=== PATIENT | male | born 1950 | race Caucasian/White ===

== ENCOUNTER 2021-03-26 12:03 | Outpatient (CLI) | payer BC, SELFPAY ==
--- NOTE | ~2021-03-26 | XR_ITS ---
EXAMINATION: XR chest 2V EXAM DATE: 03/26/2021 12:57 INDICATION: Shortness of breath, STAT. TECHNIQUE: Frontal and lateral projections of the chest obtained and reviewed. There is no prior amberly dy for comparison. FINDINGS: Small amount of nonspecific posterior sulcal airspace disease probably in the right lower l obe but could be in both. This is best identified on the lateral projection. Atelectasis or pneumonia . Mid and upper lung zones are clear. Cardiomediastinal silhouette is normal. There are no osseous ab normalities identified. IMPRESSION: Posterior sulcal pneumonia or atelectasis. Reviewed, dictated and finalized at location B. ASSISTANT
[2021-03-26 12:32] LABS: Basophils Percent Auto 0.2 % (0.2-1.2); Hematocrit 42.1 % (42.0-52.0); Hemoglobin 14.8 g/dL (14.0-18.0); Immature Granulocyte Absolute 0.04 K/mm3 (0.00-0.031); Immature Granulocyte Percent A 0.7 % (0-0.5); Lymphocytes Absolute Auto 0.62 K/mm3 (0.9-3.2); Lymphocytes Percent Auto 11.1 % (18.3-44.2); Mean Corpuscular HGB Conc 35.2 g/dl (32-36); Mean Corpuscular Hemoglobin 32.5 pg (26-34); Mean Corpuscular Volume 92.3 fl (80-100); Mean Platelet Volume 9.6 fl (7.4-10.4); Monocytes Absolute Auto 0.8 K/mm3 (0.1-0.6); Monocytes Percent Auto 13.6 % (2.6-8.5); Neutrophils Absolute Auto 4.2 K/mm3 (1.3-6.7); Neutrophils Percent Auto 74.4 % (45.5-73.1); Platelet Count Result 272 k/mm3 (150-375); Red Blood Count 4.56 M/mm3 (4.6-6.20); Red Cell Distribution Width 13.2 % (11.5-14.5); White Blood Count 5.6 K/mm3 (4.5-10.0)
[2021-03-26 12:43] LABS: Alanine Aminotransferase 92 U/L (4-50); Albumin Level 3.9 g/dL (3.5-5.1); Alkaline Phosphatase 39 U/L (38-126); Anion Gap 8 mmol/L (8-16); Aspartate Amino Transferase 81 U/L (17-59); Bilirubin,Total 1.1 mg/dL (0.2-1.3); Blood Urea Nitrogen 31 mg/dL (9-20); Calcium 8.5 mg/dL (8.4-10.2); Carbon Dioxide 28 mmol/L (22-30); Chloride 95 mmol/L (98-107); Estimated Glomerular Filt Rate 59; Glucose 237 mg/dL (65-110); Sodium 131 mmol/L (137-145)
[2021-03-26 13:00] LABS: Influenza Control Positive
[2021-03-26 14:23] LABS: Add Urine Microscopic? YES; Appearance Urine Clear (Clear); Bilirubin Urine Negative (Negative); Blood Urine Negative (Negative); Color Urine Amber (Yellow); Glucose Urine UA Negative (Negative); Ketones Urine Negative (Negative); Leukocyte Esterase Ur Negative LEU/UL (Negative); Mucus Urine Few /lpf; Nitrate Urine Negative (Negative); Protein Urine 2+ mg/dL (Negative); Specific Grav Ur 1.026 (1.001-1.035); Squamous Epithelial Cell Urine Rare /hpf (Few); Urobilinogen Urine Negative mg/dL (<2.0)
== END 2021-03-26 12:04 | disposition home or self-care (01) ==
PROVIDERS: PCP Internal Medicine; Visit Provider Internal Medicine
DX: J02.9 Acute pharyngitis, unspecified (principal); M79.10 Myalgia, unspecified site; R05.9 Cough, unspecified; R06.02 Shortness of breath; R53.1 Weakness; R30.0 Dysuria; R53.83 Other fatigue
CPT/HCPCS: 71046; 80053; 81001; 85025; 87804

== ENCOUNTER 2021-03-28 18:13 | Inpatient (IN) | payer BC, SELFPAY ==
[2021-03-28] VITALS (13 sets, daily range): BP systolic 139–168; BP diastolic 50–71; PULSE 77–91; RESP 18–29; TEMP 36.3–36.6; O2SAT 88–98; BMI 24.2
--- NOTE | ~2021-03-28 | XR_ITS ---
EXAMINATION: XR chest 1V portable DATE: 03/28/2021 19:20 INDICATION: Shortness of breath. TECHNIQUE: A single frontal view of the chest was obtained on 2 radiographs. COMPARISON: Chest 2 views 03/26/2021 FINDINGS: There are patchy airspace opacities in the mid and lower lung zones. No pleural effusion or pneumothorax. The heart size is normal. IMPRESSION: 1. Patchy airspace opacities in the mid and lower lung zones, likely pneumonia. Reviewed, dictated and finalized at location E. GER SURGERY
--- NOTE | ~2021-03-28 | CT_ITS ---
EXAMINATION: CTA chest PE protocol DATE: 03/29/2021 17:55 INDICATION: Shortness of breath. TECHNIQUE: Computed tomography angiography (CTA) of the chest was performed with 100 mL Omnipaque-350 intravenous contrast timed to evaluate the pulmonary arteries. Coronal maximum intensity projection 3D-reconstructions were created by the technologist. Automated exposure control and iterative reconst ruction technique were employed. The dose-length product was 408.56 mGy-cm. COMPARISON: Chest single view 03/28/2021 FINDINGS: There is mild scarring at the lung apices. There is mild emphysema. There are patchy ground glass opacities involving all lobes. There is mild elevation of right hemidiaphragm. There are patchy airspace opacities in right lower lobe. No pleural effusion. There is left atrial enlargement of the heart. No pericardial effusion. There is no pulmonary embolus. Calcified left hilar lymph nodes are consistent with old granulomatous disease. There is mild thoracic spondylosis. There is mild chronic height loss of T8 vertebral body. IMPRESSION: 1. No pulmonary embolus. Sensitivity is moderately decreased in the lower lobes due to motion artifac t. 2. Multifocal lung disease, consistent with COVID-19 pneumonia. 3. Mild emphysema. Reviewed, dictated and finalized at location E. ESTIMATOR IMPRESSION: 1. No pulmonary embolus. Sensitivity is moderately decreased in the lower lobes due to motion artifact. 2. Multifocal lung disease, consistent with COVID-19 pneumonia. 3. Mild emphysema.
--- NOTE | 2021-03-28 18:22 | PC.NURSE ---
May contact Rupert Manning [phone] Lety Chavarria [phone]
--- NOTE | 2021-03-28 18:44 | ECG_ITS ---
Measurements Intervals [place] Rate: 84 P: NE: 0 QRS: 26 QRSD: 90 T: 19 QT: 395 QTc: 470 Interpretive Statements ATRIAL FLUTTER/TACHYCARDIA INCOMPLETE RIGHT BUNDLE BRANCH BLOCK BASELINE ARTIFACT- II, III, AVR, AVL, AVF, V3-V6 ABNORMAL ECG Electronically Signed On 03-28-2021 20:36:33 MERCHANDISE TEAM MANAGER by Jacobo Mariee D.O.
[2021-03-28 19:16] LABS: Basophils Percent Auto 0.1 % (0.2-1.2); Hematocrit 41.6 % (42.0-52.0); Hemoglobin 14.5 g/dL (14.0-18.0); Immature Granulocyte Absolute 0.07 K/mm3 (0.00-0.031); Immature Granulocyte Percent A 0.8 % (0-0.5); Lymphocytes Absolute Auto 0.67 K/mm3 (0.9-3.2); Lymphocytes Percent Auto 7.8 % (18.3-44.2); Mean Corpuscular HGB Conc 34.9 g/dl (32-36); Mean Corpuscular Hemoglobin 31.9 pg (26-34); Mean Corpuscular Volume 91.4 fl (80-100); Mean Platelet Volume 9.3 fl (7.4-10.4); Monocytes Absolute Auto 0.8 K/mm3 (0.1-0.6); Monocytes Percent Auto 9.5 % (2.6-8.5); Neutrophils Percent Auto 81.8 % (45.5-73.1); Platelet Count Result 337 k/mm3 (150-375); Red Blood Count 4.55 M/mm3 (4.6-6.20); Red Cell Distribution Width 13.1 % (11.5-14.5); White Blood Count 8.6 K/mm3 (4.5-10.0)
[2021-03-28 19:25] LABS: INR 1.3; Prothrombin Time 15.5 Seconds (11.1-14.7)
[2021-03-28 19:26] LABS: Partial Thromboplastin Time 29.9 SECONDS (22.3-36.8)
[2021-03-28 19:29] LABS: Alanine Aminotransferase 97 U/L (4-50); Albumin Level 3.7 g/dL (3.5-5.1); Alkaline Phosphatase 53 U/L (38-126); Anion Gap 9 mmol/L (8-16); Aspartate Amino Transferase 96 U/L (17-59); Blood Urea Nitrogen 24 mg/dL (9-20); Calcium 8.2 mg/dL (8.4-10.2); Carbon Dioxide 27 mmol/L (22-30); Chloride 95 mmol/L (98-107); Estimated CRCL calculation 68 ml/min; Estimated Glomerular Filt Rate > 60; Glucose 151 mg/dL (65-110); Potassium 3.9 mmol/L (3.4-5.0); Sodium 131 mmol/L (137-145)
[2021-03-28 19:38] LABS: NT Pro B Type Natriuretic Pept 622 pg/mL (5-100)
--- NOTE | 2021-03-28 19:43 | ED.SOB ---
HPI - SOB/Dyspnea General Chief Complaint: Shortness of Breath/Dyspnea Stated Complaint: weakness Time Seen by Provider: 03/28/21 18:36 History of Present Illness HPI Narrative: Patient is a 71-year-old male who presents ER with cough for the last 10 days. Associated shortness of breath worsening over the last week. Denies fevers or chills or sweats. Saw his PCP 2 days ago. He was placed on Levaquin for possible pneumonia. He is unvaccinated against Covid. He did have a home test that had a faint positive line but no test at a facility. No chest pain or chest pressure. No loss of taste or smell. Patient found to be hypoxic upon arrival to the ER. Satting in the 80s. No history of lung disease. No lower extremity swelling. No orthopnea. Related Data Home Medications Medication Instructions Recorded Confirmed aspirin 81 mg tablet,delayed 81 mg PO DAILY 04/26/20 03/27/21 release calcium carbonate 390 mg calcium 390 mg PO DAILY 10/16/20 03/27/21 (1,000 mg) tablet mecobalamin (vitamin B12) 1,000 1,000 mcg SUBLINGUAL DAILY 10/16/20 03/27/21 mcg disintegrating tablet,sublingual omega-3 fatty acids 1,000 mg 2,000 mg PO BID cap 10/16/20 03/27/21 capsule amlodipine-benazepril 1 cap PO DAILY 03/28/21 atorvastatin 40 mg PO DAILY 03/28/21 folic acid 1 mg PO DAILY 03/28/21 hydrochlorothiazide 12.5 mg PO DAILY 03/28/21 metformin 1,000 mg PO BID 03/28/21 Allergies Allergy/AdvReac Type Severity Reaction Status Date / Time No Known Allergies Allergy Verified 03/26/21 11:30 Review of Systems Review of Systems: All systems reviewed & are unremarkable except as noted in HPI and below Constitutional: Constitutional: Denies chills, Denies fever(s) and Reports weakness ENT: Denies nasal congestion and Denies sore throat Cardiovascular: Cardiovascular: Denies chest pain, Denies rapid heart rate and Denies radiating jaw, neck or arm pain Respiratory: Respiratory: Reports cough, Reports dyspnea and Denies wheezing Gastrointestinal: Gastrointestinal: Denies abdominal pain, Denies diarrhea, Denies nausea and Denies vomiting Neurologic: Denies headache(s), Denies focal weakness and Denies numbness PMFSH Past Medical History Medical History (Updated 03/28/21 @ 21:04 by Aldo Pedroza MD) Benign essential hypertension BMI 25.0-25.9,adult BMI 26.0-26.9,adult BMI 27.0-27.9,adult Colon cancer screening Diabetes type 2, controlled Elevated homocysteine Elevated LFTs Encounter for preventive health examination Encounter for routine adult health examination without abnormal findings Encounter for special screening examination for neoplasm of prostate Gout Grade II diastolic dysfunction Heart murmur Hematuria Hyperlipidemia Impacted cerumen of both ears Inguinal hernia Mitral valve prolapse Mitral valve regurgitation Muscle ache Muscle cramps Nummular eczema On window assembler drug therapy Pneumonia Sore throat Vitamin D deficiency Weakness Family History Family History (Reviewed 03/26/21 @ 11:39 by Amparo Sim [facility]) Mother Family history of thyroid disease Family history of coronary artery disease Sibling Family history of gout Family history of elevated blood lipids Cerebrovascular accident Father Family history of type 2 diabetes mellitus Other Family history of diabetes mellitus in first degree relative Social History Social History (Reviewed 03/26/21 @ 11:39 by Amparo Sim [facility]) Smoking status: Never smoker Alcohol intake: current Substance use: never Substance use type: does not use Exam Narrative: GENERAL: Well-appearing, well-nourished, and in no acute distress. HEAD: Normocephalic, atraumatic. EYES: PERRL and EOMI. CHEST: Clear to auscultation. No respiratory distress. HEART: Irregular regular rate and rhythm. Normal peripheral pulses. ABDOMEN: Soft, nontender, nondistended. EXTREMITIES: Normal range of motion. No edema. SKIN: Warm, dry, no rash.
[2021-03-28 20:09] LABS: SARS-CoV-2 RNA PCR Positive
--- NOTE | 2021-03-28 21:41 | ADMGEN ---
This patient, Larry Condon, was admitted to [facility] S[facility] Room 306-01. Patient/family oriented to hospital policies and general routines including ID bracelet, bed and alarms, visiting hours, pain management, procedures, bathroom and other care routines, personal items, smoking policy, room service/diet, and visiting hours. Information on how to activate the Rapid Response Team has been discussed. Patient/Family are encouraged to report perceived risks to care and to ask questions if they do not understand what they are told or what they should do.
--- NOTE | 2021-03-28 23:34 | PM.IMHP ---
H&P: HPI History of Present Illness Date/Time: 03/28/21 23:34 Chief Complaint: Weakness Narrative: 71-year-old male with past medical history of hypertension, hyperlipidemia, diabetes mellitus who presented to the ER with low oxygen saturations. The patient is a poor historian and cannot give me much in the form of details and thusly most of the information was obtained from ER records and office visit note. The patient had taken 3 home COVID test with 2 of the test for resulting in a faint positive result. He has not been vaccinated against COVID-19. The patient had been evaluated by Dr. Adarsh Major 03/26/2021 and a chest x-ray was performed which demonstrate pneumonia. He was placed on Levaquin. He denies any known ill exposures. He Rich tells me that he has just been feeling fatigued for about a week. According to the ER note the patient had also been having a cough. He denies any significant shortness of breath. However at home he was checking his pulse ox and his pulse ox over the last several days had been persistently around 88%. He denies any chest pain, pressure, lower extremity swelling, loss of sense of taste or smell. EKG performed in the ER demonstrated atrial fibrillation. The patient cannot confirm whether not he has atrial fibrillation. He states that Dr. Major ?would know something about that.? Is heart rate was controlled. He has not been having any palpitations. He is not on chronic blood thinners. Review of Systems Review of Systems: 12 systems were reviewed with pertinent positives and negatives per HPI. Except as documented in the HPI, all other systems were reviewed and are negative. [facility] Past Medical History Medical History (Updated 03/28/21 @ 23:38 by Vesta Roth DO) Benign essential hypertension Diabetes type 2, controlled Elevated homocysteine Gout Grade II diastolic dysfunction Heart murmur Hyperlipidemia Inguinal hernia Mitral valve regurgitation Nummular eczema On process inspector drug therapy Vitamin D deficiency Surgical History Surgical History (Updated 03/28/21 @ 23:38 by Vesta Roth DO) No pertinent past surgical history Family History Family History Mother Family history of thyroid disease Family history of coronary artery disease Sibling Family history of gout Family history of elevated blood lipids Cerebrovascular accident Father Family history of type 2 diabetes mellitus Family history of diabetes mellitus in first degree relative Social History Social History (Updated 03/28/21 @ 23:40 by Vesta Roth DO) Social History: The patient lives alone. He has a couple of daughters. 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 He is a lifelong nonsmoker. He drinks alcohol occasionally in moderation. He denies illicit substance use. Smoking status: Never smoker Alcohol intake: never Substance use: never Substance use type: does not use Spiritual care concerns: No Meds Home Medications and Allergies Home Medications Medication Instructions Recorded Confirmed Type aspirin 81 mg tablet,delayed 81 mg PO DAILY 04/26/20 03/28/21 History release allopurinol 300 mg tablet 150 mg PO DAILY #90 tablet 05/14/20 03/28/21 Rx mecobalamin (vitamin B12) 1,000 1,000 mcg SUBLINGUAL DAILY 10/16/20 03/28/21 History mcg disintegrating tablet,sublingual levofloxacin 500 mg tablet 500 mg PO DAILY 10 Days #10 tablet 03/26/21 03/28/21 Rx amlodipine-benazepril 1 cap PO DAILY 03/28/21 03/28/21 History atorvastatin 40 mg PO DAILY 03/28/21 03/28/21 History calcium carbonate-vitamin D3 [All 600 tablet PO DAILY 03/28/21 03/28/21 History Day Calcium] folic acid 1 mg PO DAILY 03/28/21 03/28/21 History hydrochlorothiazide 12.5 mg PO DAILY 03/28/21 03/28/21 History metformin 1,000 mg PO BID 03/28/21 03/28/21 History omega [id number] oil [Fish Oil] 1,200 cap PO BID 03/28/21 03/28/21 History
[2021-03-29] VITALS (9 sets, daily range): BP systolic 117–140; BP diastolic 56–71; PULSE 38–105; RESP 16–18; TEMP 35.8–36.9; O2SAT 90–94
[2021-03-29] MEDS: REMDESIVIR 200 MG/NS 250 ML 200 MG/250 ML BAG 250 MG IVPB (00:54)
[2021-03-29 05:45] LABS: Glucose Point of Care 275 mg/dl (65-105)
[2021-03-29 07:10] LABS: Alanine Aminotransferase 76 U/L (4-50); Estimated CRCL calculation 76 ml/min; Estimated Glomerular Filt Rate > 60
[2021-03-29 07:24] LABS: INR 1.3; Prothrombin Time 15.5 Seconds (11.1-14.7)
[2021-03-29 08:12] LABS: Glucose Point of Care 242 mg/dl (65-105)
[2021-03-29] MEDS: amLODIPine BESYLATE 5 MG TABLET 10 MG PO (08:17)
[2021-03-29] MEDS: OMEGA 3 POLYUNSAT FATTY ACIDS 1 GM CAP PO ×2 (08:17→18:06)
[2021-03-29] MEDS: ENOXAPARIN 40 MG/0.4 ML SYRINGE SUB-Q (08:17)
[2021-03-29] MEDS: hydroCHLOROthiazide 12.5 MG CAPSULE PO (08:17)
[2021-03-29] MEDS: metFORMIN HCL 500 MG TABLET 1000 MG PO ×2 (08:17→18:06)
[2021-03-29] MEDS: allopurinoL 150 MG TABLET PO (08:17)
[2021-03-29] MEDS: ASPIRIN 81 MG ENTERIC TABLET PO (08:17)
[2021-03-29] MEDS: lisinopriL 20 MG TABLET 40 MG PO (08:17)
[2021-03-29] MEDS: ATORVASTATIN 40 MG TABLET PO (08:18)
[2021-03-29] MEDS: FOLIC ACID 1 MG TABLET PO (08:18)
--- NOTE | 2021-03-29 11:36 | PM.IMPN ---
Progress Note: A&P Assessment and Plan (1) Acute respiratory failure with hypoxia: Code(s): J96.01 - Acute respiratory failure with hypoxia Status: Acute Assessment and Plan: -Patient presents with mild acute hypoxic respiratory failure in the setting of COVID pneumonia in a unvaccinated patient. -Currently requiring 2L NC (2) Pneumonia due to 2019-nCoV: Code(s): U07.1 - COVID-19; J12.82 - Pneumonia due to coronavirus disease 2019 Status: Acute Assessment and Plan: -decadron and remdesivir -continue supportive care -wean oxygen as tolerated -consider adding Baricitinib if oxygen requirement increases (3) Diabetes type 2, controlled: Qualifiers: Diabetes mellitus termite inspector insulin use: without penitentiary use Diabetes mellitus complication status: without complication Qualified Code(s): E11.9 - Type 2 diabetes mellitus without complications Code(s): E11.9 - Type 2 diabetes mellitus without complications Status: Acute Assessment and Plan: -takes Metformin 1,000 mg BID -check A1c -Given that we have started patient on Decadron will add low-dose sliding scale insulin with Accu-Cheks a.c. HS and monitor. (4) Elevated LFTs: Code(s): R79.89 - Other specified abnormal findings of blood chemistry Status: Acute Assessment and Plan: -Patient does have elevated transaminases likely due to his acute viral infection. -Will hold his statin therapy at this time. (5) Afib: Code(s): I48.91 - Unspecified atrial fibrillation Status: Acute Assessment and Plan: -EKG in the ER demonstrated atrial fibrillation -pt is a poor historian and does not know if he has afib. He also does not know if he is on chronic anti coagulation although he has all of his medications with him and I do not see any blood thinners -will place on telemetry -repeat EKG -consider starting anticoagulation/cardiology consult Subjective Date/time seen: 03/29/21 11:36 Interval history: 71-year-old male with past medical history of hypertension, hyperlipidemia, diabetes mellitus, admitted to the hospital for COVID 19. Pt is a very poor historian, specifically surrounding his medical care. He is A/Ox4, no confusion. He states sob is improving since being placed on oxygen. No chest pain. Answers most other questions with I don't know. Review of Systems Review of Systems: All systems reviewed & are unremarkable except as noted in HPI and below Exam Narrative: General: No acute distress, non toxic appearing, elderly Eyes: PERRL, no scleral icterus HEENT: NCAT, external ears normal, MMM Respiratory: No respiratory distress, Lungs CTA bilaterally, no wheezing Cardiovascular: irregular rhythm regular rate, no murmur Abdominal: Soft, nontender, non distended, no rebound or guarding Musculoskeletal: Moves all 4 extremities, no edema Neurological: A/Ox3, speech normal, no facial asymmetry Skin: Warm, dry, no rashes Psychiatric: flat affect Objective Data Vital Signs Vital Signs: Vital Signs - 24 hr 03/28/21 18:17 03/28/21 18:25 03/28/21 18:30 Temperature Pulse Rate 89 Respiratory Rate 20 Blood Pressure 168/67 H Pulse Oximetry 91 88 L 95 03/28/21 18:35 03/28/21 19:04 03/28/21 19:05 Temperature Pulse Rate 84 Respiratory Rate 29 H Blood Pressure Pulse Oximetry 98 96 96 03/28/21 19:07 03/28/21 20:12 03/28/21 20:42 Temperature Pulse Rate 81 91 88 Respiratory Rate 27 H 18 21 H Blood Pressure 152/69 H 139/65 151/71 H Pulse Oximetry 96 94 94 03/28/21 21:30 03/28/21 21:45 03/28/21 22:00 Temperature 97.3 F L Pulse Rate 88 83 Respiratory Rate 18 18 Blood Pressure 148/50 H 148/67 H Pulse Oximetry 94 93 94 03/28/21 23:52 03/29/21 03:56 03/29/21 08:00 Temperature 97.9 F 97.7 F 96.4 F L Pulse Rate 77 72 105 H Respiratory Rate 18 18 16 Blood Pressure 150/57 H 138/58
--- NOTE | 2021-03-29 11:47 | ECG_ITS ---
Measurements Intervals [place] Rate: 78 P: DC: 0 QRS: 24 QRSD: 94 T: 17 QT: 431 QTc: 493 Interpretive Statements ATRIAL FIBRILLATION INCOMPLETE RIGHT BUNDLE BRANCH BLOCK BASELINE ARTIFACT- III, V1, V3-V6 ABNORMAL ECG Electronically Signed On 03-29-2021 13:39:23 CLOTHES IRONER by Jacobo Mariee D.O.
[2021-03-29 18:16] LABS: Glucose Point of Care 299 mg/dl (65-105)
[2021-03-29] MEDS: REMDESIVIR 100 MG/NS 250 ML 100 MG/250 ML BAG 250 MG IVPB (21:18)
[2021-03-30] VITALS (8 sets, daily range): BP systolic 104–151; BP diastolic 60–80; PULSE 52–129; RESP 18; TEMP 35.7–37.2; O2SAT 91–95
--- NOTE | 2021-03-30 | ECHO_ITS ---
Patient Info Name: Larry Condon Age: 71 years : 1950 Gender: Male Ht: 71 in Wt: 173 lbs BSA: 1.99 m2 HR: 113 bpm BP: 151 / 80 mmHg Heart Rhythm: Atrial Fibrillation Technical Quality: Good Exam Date: 03/30/2021 1:38 PM Exam Location: [facility] Pulmonary Exam Room: 306 Patient Status: Inpatient Admit Date: 03/29/2021 Staff Ordering Physician: Diana Stinsno PA-C Herb Counselor: Smita Murphy RDCS Attending Provider: Diana Stinson PA-C Referring Physician: Milad PARKER; Exam Type: CA echo doppler color flow Study Info Indications - afib Complete two-dimensional, color flow and Doppler transthoracic echocardiogram is performed. Summary 1. Complete two-dimensional, color flow and Doppler transthoracic echocardiogram is performed. 2. Left ventricular chamber size, systolic and diastolic function are normal with no regional wall motion abnormalities with an estimated ejection fraction of 60-65%. Borderline hypertrophy. 3. Left atrial chamber dimension is mildly enlarged. 4. The mitral valve has myxomatous leaflets, moderate anterior prolapse and posterior prolapse. Trivial regurgitation. 5. There is mild tricuspid valve regurgitation. 6. Mild pulmonary hypertension, estimated pulmonary arterial systolic pressure is 38 mmHg. 7. Atrial fibrillation. Left Ventricle Left ventricular chamber dimension is normal. Left ventricular systolic function is normal, estimated at 60-65%. There is no increased left ventricular wall thickness. Left ventricular septal wall motion is normal. The left ventricular diastolic function is normal. Left ventricular chamber size, systolic and diastolic function are normal with no regional wall motion abnormalities with an estimated ejection fraction of 60-65%. Borderline hypertrophy. Right Ventricle Right ventricular chamber dimension is normal. Right ventricular systolic function is normal. Left Atria Left atrial chamber dimension is mildly enlarged. Right Atria Right atrial chamber dimension is normal. Aortic Valve The aortic valve is trileaflet. There is no aortic valve sclerosis. There is no aortic valve stenosis. There is no aortic valve regurgitation. Pulmonic Valve The pulmonic valve is normal. There is no pulmonic valve stenosis. There is no pulmonic regurgitation. Mitral Valve The mitral valve has myxomatous leaflets, moderate anterior prolapse and posterior prolapse. Trivial regurgitation. There is no mitral valve stenosis. There is trace mitral valve regurgitation. The mitral valve annulus is mildly calcified. Tricuspid Valve The tricuspid valve leaflets are normal. There is no significant tricuspid valve stenosis. There is mild tricuspid valve regurgitation. Mild pulmonary hypertension, estimated pulmonary arterial systolic pressure is 38 mmHg. Pericardium/Pleural The pericardium appears normal. There is no pericardial effusion. Inferior Vena Cava Normal inferior vena cava with >50% collapse upon inspiration consistent with Empty right atrial pressure, 10 mmHg. Aorta The aortic root size at the sinus of Valsalva is normal. The prox ascending aorta size is normal. Left Ventricular Outflow Tract Name Value Normal LVOT 2D
[2021-03-30 06:35] LABS: Basophils Percent Auto 0.1 % (0.2-1.2); Hematocrit 40.8 % (42.0-52.0); Hemoglobin 13.6 g/dL (14.0-18.0); Immature Granulocyte Absolute 0.06 K/mm3 (0.00-0.031); Immature Granulocyte Percent A 0.8 % (0-0.5); Immature Platelet Fraction Pct 3.8 % (0.9-11.2); Lymphocytes Absolute Auto 0.61 K/mm3 (0.9-3.2); Lymphocytes Percent Auto 8.4 % (18.3-44.2); Mean Corpuscular HGB Conc 33.3 g/dl (32-36); Mean Corpuscular Hemoglobin 32.1 pg (26-34); Mean Corpuscular Volume 96.2 fl (80-100); Mean Platelet Volume 9.8 fl (7.4-10.4); Monocytes Absolute Auto 0.9 K/mm3 (0.1-0.6); Neutrophils Absolute Auto 5.7 K/mm3 (1.3-6.7); Neutrophils Percent Auto 78.7 % (45.5-73.1); Platelet Count Result 379 k/mm3 (150-375); Red Blood Count 4.24 M/mm3 (4.6-6.20); Red Cell Distribution Width 13.2 % (11.5-14.5); White Blood Count 7.2 K/mm3 (4.5-10.0)
[2021-03-30 06:42] LABS: INR 1.3; Prothrombin Time 15.5 Seconds (11.1-14.7)
[2021-03-30 06:45] LABS: D Dimer 0.28 ug/mL (<0.48)
[2021-03-30 06:47] LABS: Alanine Aminotransferase 70 U/L (4-50); Albumin Level 3.2 g/dL (3.5-5.1); Alkaline Phosphatase 40 U/L (38-126); Anion Gap 9 mmol/L (8-16); Aspartate Amino Transferase 45 U/L (17-59); Bilirubin,Total 0.6 mg/dL (0.2-1.3); Blood Urea Nitrogen 40 mg/dL (9-20); CRP 7.1 mg/dL (<1.0); Carbon Dioxide 22 mmol/L (22-30); Chloride 97 mmol/L (98-107); Estimated CRCL calculation 68 ml/min; Estimated Glomerular Filt Rate > 60; Glucose 337 mg/dL (65-110); Potassium 4.1 mmol/L (3.4-5.0); Sodium 128 mmol/L (137-145)
[2021-03-30 10:02] LABS: Hemoglobin A1C 6.1 % (<5.7)
[2021-03-30] MEDS: ENOXAPARIN 40 MG/0.4 ML SYRINGE SUB-Q (10:34)
[2021-03-30] MEDS: FOLIC ACID 1 MG TABLET PO (10:35)
[2021-03-30] MEDS: amLODIPine BESYLATE 5 MG TABLET 10 MG PO (10:35)
[2021-03-30] MEDS: lisinopriL 20 MG TABLET 40 MG PO (10:35)
[2021-03-30] MEDS: OMEGA 3 POLYUNSAT FATTY ACIDS 1 GM CAP PO ×2 (10:35→16:57)
[2021-03-30] MEDS: allopurinoL 150 MG TABLET PO (10:35)
[2021-03-30] MEDS: hydroCHLOROthiazide 12.5 MG CAPSULE PO (10:36)
[2021-03-30] MEDS: ASPIRIN 81 MG ENTERIC TABLET PO (10:36)
[2021-03-30] MEDS: metFORMIN HCL 500 MG TABLET 1000 MG PO ×2 (10:36→16:56)
--- NOTE | 2021-03-30 11:52 | PC.NURSE ---
Pt's daughter called wanting an update on pt's status. She stated that pt thinks he is being discharged today. I explained that although pt's labs, exams are trending towards an improvement of sorts, I highly doubt pt would be discharged today. She agreed that he needed a few more days. I answered her remaining questions regarding test results.
[2021-03-30 11:57] LABS: Glucose Point of Care 359 mg/dl (65-105)
[2021-03-30 12:20] LABS: Glucose Point of Care 329 mg/dl (65-105)
[2021-03-30] MEDS: INSULIN ASPART (*BKC) 100 UNITS/ML SUB-Q ×2 (12:37→16:56)
--- NOTE | 2021-03-30 12:48 | PM.IMPN ---
Progress Note: A&P Assessment and Plan (1) Acute respiratory failure with hypoxia: Code(s): J96.01 - Acute respiratory failure with hypoxia Status: Acute Assessment and Plan: -Patient presents with mild acute hypoxic respiratory failure in the setting of COVID pneumonia in a unvaccinated patient. -Currently requiring 2L NC (2) Pneumonia due to 2019-nCoV: Code(s): U07.1 - COVID-19; J12.82 - Pneumonia due to coronavirus disease 2019 Status: Acute Assessment and Plan: -decadron and remdesivir -continue supportive care -wean oxygen as tolerated -consider adding Baricitinib if oxygen requirement increases (3) Diabetes type 2, controlled: Qualifiers: Diabetes mellitus complication status: without complication Diabetes mellitus intermediate insulin use: without terminal makeup operator use Qualified Code(s): E11.9 - Type 2 diabetes mellitus without complications Code(s): E11.9 - Type 2 diabetes mellitus without complications Status: Acute Assessment and Plan: -takes Metformin 1,000 mg BID -A1c 6.1 -Given that we have started patient on Decadron we did start accuchecks ACHS, sliding scale insulin, and hypoglycemic protocol -Has been running in the 300s so increased to moderate sliding scale and starting Lantus tonight 12 units (4) Elevated LFTs: Code(s): R79.89 - Other specified abnormal findings of blood chemistry Status: Acute Assessment and Plan: -Patient does have elevated transaminases likely due to his acute viral infection. -Will hold his statin therapy at this time. (5) Afib: Code(s): I48.91 - Unspecified atrial fibrillation Status: Acute Assessment and Plan: -EKG in the ER demonstrated atrial fibrillation -pt is a poor historian and does not know if he has afib. He also does not know if he is on chronic anti coagulation although he has all of his medications with him and I do not see any blood thinners -telemetry monitoring -repeat EKG also with afib -echo ordered -consider starting anticoagulation -cardiology consult -has been rate controlled Subjective Date/time seen: 03/30/21 12:00 Interval history: 71-year-old male with past medical history of hypertension, hyperlipidemia, diabetes mellitus, admitted to the hospital for COVID 19. Pt has no complaints. Denies cp, sob, palpitations, edema, N/V. On 2L NC. Review of Systems Review of Systems: All systems reviewed & are unremarkable except as noted in HPI and below Exam Narrative: General: No acute distress, non toxic appearing, elderly Eyes: PERRL, no scleral icterus HEENT: NCAT, external ears normal, MMM Respiratory: No respiratory distress, Lungs CTA bilaterally, no wheezing Cardiovascular: irregular rhythm regular rate, no murmur Abdominal: Soft, nontender, non distended, no rebound or guarding Musculoskeletal: Moves all 4 extremities, no edema Neurological: A/Ox3, speech normal, no facial asymmetry Skin: Warm, dry, no rashes Psychiatric: flat affect Objective Data Vital Signs Vital Signs: Vital Signs - 24 hr 03/29/21 15:49 03/29/21 15:52 03/29/21 16:00 Temperature 96.6 F L Pulse Rate 80 86 71 Respiratory Rate 16 Blood Pressure 118/65 Pulse Oximetry 93 03/29/21 19:54 03/29/21 20:00 03/29/21 23:43 Temperature 98.0 F 98.4 F Pulse Rate 79 38 L 81 Respiratory Rate 18 18 Blood Pressure 140/56 L 117/56 L Pulse Oximetry 90 93 03/30/21 00:00 03/30/21 04:00 03/30/21 08:00 Temperature 98.2 F 96.4 F L Pulse Rate 80 78 86 Respiratory Rate 18 18 Blood Pressure 145/72 H 150/69 H Pulse Oximetry 92 94 03/30/21 12:00 Temperature 96.3 F L Pulse Rate 84 Respiratory Rate 18 Blood Pressure 151/80 H Pulse Oximetry 93 Intake/Output Intake/Output: Intake & Output 03/27/21 03/28/21 03/29/21 03/30/21 23:59 23:59 23:59 23:59 Intake Total 1158 610 Balance 1158 610 Meds/Result
[2021-03-30 12:59] LABS: Sodium Urine Random 28 meq/L
--- NOTE | 2021-03-30 15:45 | PM.CNCAR ---
Assessment and Plan Assessment and plan (1) Persistent atrial fibrillation: Code(s): I48.19 - Other persistent atrial fibrillation Status: Acute Assessment and Plan: New onset of AFib with a reasonably controlled heart rate at rest, not on any rate controlling medications at this time, suggesting some AV node dysfunction. Probably related to COVID pneumonia, possibly related to other causes such as mitral valve disease, hypertension and aging. Check TSH Echocardiogram pending Discussed atrial fibrillation extensively with the patient, etiologies, treatment, anicoagulation, etc.. The patient seems asymptomatic so we will likely pursue rate control and anticoagulation strategy and follow-up as an outpatient. Add metoprolol succinate 25 mg daily Start Xarelto 20 mg daily, if affordable. Stop Lovenox and ASA (2) Pneumonia due to 2019-nCoV: Code(s): U07.1 - COVID-19; J12.82 - Pneumonia due to coronavirus disease 2019 Status: Acute Assessment and Plan: Treatment per hospitalist. (3) Mitral valve prolapse: Code(s): I34.1 - Nonrheumatic mitral (valve) prolapse Status: Acute Assessment and Plan: Trivial mitral regurgitation noted in 2018; follow-up echo pending. (4) Benign essential hypertension: Code(s): I10 - Essential (primary) hypertension Status: Acute Assessment and Plan: Blood pressure running high in house at times. History of Present Illness History of Present Illness Consult date/time: 03/30/21 15:45 Requesting physician: Diana Stinson PA-C Consult reason: atrial fibrillation Reason For Visit: COVID Pneumonia, Hypoxia Narrative: Larry Condon is a 71-year-old male admitted 03/28/2021 with mild respiratory failure and hypoxia secondary to COVID pneumonia. We were asked to see him at the request of [facility] Stinson for our advice and opinion regarding his new onset of atrial fibrillation, in consultation. The patient also has a history of mitral valve prolapse, hypertension and diabetes, followed by Dr. Major. The patient had a cough and shortness of breath for about a week which progressed. He was admitted and started on 4 L of oxygen as well as standard COVID treatment protocol; he is feeling better now down to 2 L of oxygen. He is in AFib with a heart rate running in 80s-90s at rest up to 110 or so with activity, sometimes up to the 120s 130s.. He has not noticed any palpitations. Prior to this illness he did not have any exertional shortness of breath or chest pain. Denies any thyroid problems or known sleep apnea. Does drink some alcohol, perhaps a 6 pack a day during the summertime, less recently. No history of strokes. No bleeding issues. Review of Systems Constitutional: Constitutional: Reports fatigue Eyes: Eyes: Reports no additional eye complaints ENT: Reports system reviewed and no additional complaints, except as documented and Denies epistaxis Cardiovascular: Cardiovascular: Denies chest pain, Denies pedal edema, Denies leg edema, Denies lightheadedness and Denies palpitations Respiratory: Respiratory: Reports cough, Reports dyspnea and Reports dyspnea on exertion Gastrointestinal: Gastrointestinal: Denies abdominal pain, Denies hematochezia and Denies hematemesis Genitourinary: Genitourinary: Denies hematuria Musculoskeletal: Musculoskeletal: Reports no additional musculoskeletal complaints Integumentary/Breasts: Skin/Breast: Denies rash Neurologic: Reports system reviewed and no additional complaints, except as documented Comments: No history of stroke Psychiatric: Psychiatric: Reports no additional psychiatric complaints Endocrine: Endocrine: Reports no additional endocrine complaints [facility] Past Medical History Medical History Benign essential hypertension Diabetes type 2, controlled Elevated homocysteine Gout Grade II diastolic
[2021-03-30 16:17] LABS: Glucose Point of Care 203 mg/dl (65-105)
[2021-03-30] MEDS: METOPROLOL SUCCINATE EXT REL 25 MG TABCR PO (16:56)
[2021-03-30] MEDS: RIVAROXABAN 20 MG TABLET PO (16:56)
[2021-03-30] MEDS: SODIUM CHLORIDE 1 GM TABLET PO (16:57)
[2021-03-30] MEDS: INSULIN GLARGINE (*BKC) 100 UNITS/ML 12 UNITS SUB-Q (21:04)
[2021-03-30] MEDS: REMDESIVIR 100 MG/NS 250 ML 100 MG/250 ML BAG 250 MG IVPB (21:05)
[2021-03-30 21:15] LABS: Glucose Point of Care 132 mg/dl (65-105)
[2021-03-31] VITALS (10 sets, daily range): BP systolic 113–130; BP diastolic 50–75; PULSE 43–110; RESP 16–20; TEMP 35.9–36.7; O2SAT 90–97
[2021-03-31 05:57] LABS: Basophils Percent Auto 0.1 % (0.2-1.2); Hematocrit 37.8 % (42.0-52.0); Immature Granulocyte Absolute 0.07 K/mm3 (0.00-0.031); Immature Granulocyte Percent A 0.8 % (0-0.5); Lymphocytes Absolute Auto 0.61 K/mm3 (0.9-3.2); Lymphocytes Percent Auto 6.8 % (18.3-44.2); Mean Corpuscular HGB Conc 34.4 g/dl (32-36); Mean Corpuscular Hemoglobin 32.2 pg (26-34); Mean Corpuscular Volume 93.6 fl (80-100); Mean Platelet Volume 9.4 fl (7.4-10.4); Monocytes Absolute Auto 0.6 K/mm3 (0.1-0.6); Neutrophils Absolute Auto 7.7 K/mm3 (1.3-6.7); Neutrophils Percent Auto 85.3 % (45.5-73.1); Platelet Count Result 431 k/mm3 (150-375); Red Blood Count 4.04 M/mm3 (4.6-6.20); Red Cell Distribution Width 13.3 % (11.5-14.5)
[2021-03-31 06:17] LABS: Alanine Aminotransferase 60 U/L (4-50); Albumin Level 3.1 g/dL (3.5-5.1); Alkaline Phosphatase 43 U/L (38-126); Anion Gap 9 mmol/L (8-16); Aspartate Amino Transferase 31 U/L (17-59); Bilirubin,Total 0.6 mg/dL (0.2-1.3); Blood Urea Nitrogen 37 mg/dL (9-20); Calcium 8.2 mg/dL (8.4-10.2); Carbon Dioxide 24 mmol/L (22-30); Chloride 99 mmol/L (98-107); Estimated CRCL calculation 68 ml/min; Estimated Glomerular Filt Rate > 60; Glucose 222 mg/dL (65-110); Magnesium 2.5 mg/dL (1.6-2.3); Potassium 4.3 mmol/L (3.4-5.0); Sodium 132 mmol/L (137-145)
[2021-03-31 07:27] LABS: Thyroid Stimulating Hormone Reflex 0.082 uIU/mL (0.465-4.68)
[2021-03-31 07:41] LABS: INR 2.7; Prothrombin Time 27.5 Seconds (11.1-14.7)
[2021-03-31] MEDS: INSULIN ASPART (*BKC) 100 UNITS/ML SUB-Q ×3 (07:49→17:42)
[2021-03-31] MEDS: METOPROLOL SUCCINATE EXT REL 25 MG TABCR PO (07:50)
[2021-03-31] MEDS: SODIUM CHLORIDE 1 GM TABLET PO ×2 (07:51→17:41)
[2021-03-31] MEDS: amLODIPine BESYLATE 5 MG TABLET 10 MG PO (07:51)
[2021-03-31] MEDS: allopurinoL 150 MG TABLET PO (07:52)
[2021-03-31] MEDS: metFORMIN HCL 500 MG TABLET 1000 MG PO ×2 (07:52→17:41)
[2021-03-31] MEDS: hydroCHLOROthiazide 12.5 MG CAPSULE PO (07:52)
[2021-03-31] MEDS: OMEGA 3 POLYUNSAT FATTY ACIDS 1 GM CAP PO ×2 (07:52→17:41)
[2021-03-31] MEDS: lisinopriL 20 MG TABLET 40 MG PO (07:52)
[2021-03-31] MEDS: FOLIC ACID 1 MG TABLET PO (07:52)
[2021-03-31 08:33] LABS: Glucose Point of Care 216 mg/dl (65-105)
[2021-03-31 08:56] LABS: Free T4 Free Thyroxine Reflex 2.08 ng/dL (0.78-2.19)
[2021-03-31 11:03] LABS: Total Triiodothyronine (T3) 0.71 NG/ML (0.97-1.69)
[2021-03-31 12:07] LABS: Glucose Point of Care 359 mg/dl (65-105)
--- NOTE | 2021-03-31 12:43 | PM.IMPN ---
Progress Note: A&P Assessment and Plan (1) Acute respiratory failure with hypoxia: Code(s): J96.01 - Acute respiratory failure with hypoxia Status: Acute Assessment and Plan: -Patient presents with mild acute hypoxic respiratory failure in the setting of COVID pneumonia in a unvaccinated patient. -Currently requiring 2L NC (2) Pneumonia due to 2019-nCoV: Code(s): U07.1 - COVID-19; J12.82 - Pneumonia due to coronavirus disease 2019 Status: Acute Assessment and Plan: -decadron and remdesivir -continue supportive care -wean oxygen as tolerated -consider adding Baricitinib if oxygen requirement increases (3) Diabetes type 2, controlled: Qualifiers: Diabetes mellitus skilled nursing insulin use: without continuous churn buttermaker use Diabetes mellitus complication status: without complication Qualified Code(s): E11.9 - Type 2 diabetes mellitus without complications Code(s): E11.9 - Type 2 diabetes mellitus without complications Status: Acute Assessment and Plan: -takes Metformin 1,000 mg BID -A1c 6.1 -Given that we have started patient on Decadron we did start accuchecks ACHS, sliding scale insulin, and hypoglycemic protocol -Has been running in the 300s so increased to moderate sliding scale and started Lantus 12 units (4) Elevated LFTs: Code(s): R79.89 - Other specified abnormal findings of blood chemistry Status: Acute Assessment and Plan: -Patient does have elevated transaminases likely due to his acute viral infection. -Will hold his statin therapy at this time. (5) Afib: Code(s): I48.91 - Unspecified atrial fibrillation Status: Acute Assessment and Plan: -EKG in the ER demonstrated atrial fibrillation -pt is a poor historian and does not know if he has afib. He also does not know if he is on chronic anti coagulation although he has all of his medications with him and I do not see any blood thinners -telemetry monitoring -repeat EKG also with afib -echo reviewed, Left ventricular chamber size, systolic and diastolic function are normal with no regional wall motion abnormalities with an estimated ejection fraction of 60-65%. Borderline hypertrophy. -cardiology consult -per cardiology Lovenox was switched to xaralto and Metprolol was started. he was noted to be bradycardic today so we have held his metoprolol. (6) Hyponatremia: Code(s): E87.1 - Hypo-osmolality and hyponatremia Status: Acute Assessment and Plan: -urine studies pending -1500 cc fluid restriction,add salt tabs, continue HCTZ for now but possibly hold if no improvement. -showing mild improvement, will lift fluid restriction and recheck in AM, continue salt tabs Subjective Date/time seen: 03/31/21 12:43 Interval history: 71-year-old male with past medical history of hypertension, hyperlipidemia, diabetes mellitus, admitted to the hospital for COVID 19. Pt has no complaints. Denies cp, sob, palpitations, edema, N/V. On 2L NC. Noted to be bradycardic on telemetry with rate in the 40s/50s. Was started on Metoprolol yesterday. Review of Systems Review of Systems: All systems reviewed & are unremarkable except as noted in HPI and below Exam Narrative: General: No acute distress, non toxic appearing, elderly Eyes: PERRL, no scleral icterus HEENT: NCAT, external ears normal, MMM Respiratory: No respiratory distress, Lungs CTA bilaterally, no wheezing Cardiovascular: irregular rhythm, bradycardic, no murmur Abdominal: Soft, nontender, non distended, no rebound or guarding Musculoskeletal: Moves all 4 extremities, no edema Neurological: A/Ox3, speech normal, no facial asymmetry Skin: Warm, dry, no rashes Psychiatric: flat affect Objective Data Vital Signs Vital Signs: Vital Signs - 24 hr 03/30/21 16:00 03/30/21 16:56 03/30/21 20:00 Temperature 96.8 F L 97.0 F L Pulse Rate 80 129 H 80
--- NOTE | 2021-03-31 15:42 | PC.NURSE ---
Pt's daughter, Ade, called again today wanting an update on pt's status. The call was taken by the charge nurse who verified whether Ade was an approved contact. As Ade was not, the charge nurse spoke directly with pt regarding providing information to his daughter. The pt stated that he does not want Ade to receive information about him and that if she wants to know something then she can ask him directly herself. Pt also stated that he does not want to add her to the approved contact list nor are we to discuss anything with her. Pt's wishes were conveyed to Ade.
[2021-03-31 17:00] LABS: Glucose Point of Care 320 mg/dl (65-105)
--- NOTE | 2021-03-31 17:19 | PM.PNCARD ---
Progress Note: A&P Assessment and Plan (1) Persistent atrial fibrillation: Code(s): I48.19 - Other persistent atrial fibrillation Status: Acute Assessment and Plan: New onset of AFib with a reasonably controlled heart rate at rest, not on any rate controlling medications at this time, suggesting some AV node dysfunction. Probably related to COVID pneumonia, possibly related to other causes such as mitral valve prolapse, hypertension and aging. Added metoprolol succinate 25 mg daily but with bradycardia I will discontinue it. Started Xarelto 20 mg daily, if affordable. Will see periodically (2) Pneumonia due to 2019-nCoV: Code(s): U07.1 - COVID-19; J12.82 - Pneumonia due to coronavirus disease 2019 Status: Acute Assessment and Plan: Treatment per hospitalist. (3) Mitral valve prolapse: Code(s): I34.1 - Nonrheumatic mitral (valve) prolapse Status: Acute Assessment and Plan: Definite MVP, only Trivial mitral regurgitation. (4) Benign essential hypertension: Code(s): I10 - Essential (primary) hypertension Status: Acute Assessment and Plan: Blood pressure at goal. (5) Low TSH level: Code(s): R79.89 - Other specified abnormal findings of blood chemistry Status: Acute Assessment and Plan: T3 and free T4 near normal but TSH low. KATYA bolaños/ Dr. Major. Subjective Date/time seen: 03/31/21 17:19 Interval history: Patient admitted with COVID pneumonia, admitted with new onset of atrial fibrillation as well. Very mildly elevated heart rate off meds. History of mitral valve prolapse, hypertension diabetes. Date of service 03/30/2021: Added metoprolol succinate 25 mg daily and Xarelto. Date of service 03/31/2021: Patient had heart rate in the 40s this morning after his metoprolol. Remains on O2 at 2 L . TSH was 0.082.. Echo as below showing mitral valve prolapse but only trivial mitral regurgitation. Review of Systems Constitutional: Constitutional: Reports no additional constitutional complaints Eyes: Eyes: Reports no additional eye complaints ENT: Denies epistaxis Cardiovascular: Cardiovascular: Denies chest pain, Denies pedal edema, Denies leg edema, Denies lightheadedness and Denies palpitations Respiratory: Respiratory: Reports cough, Denies dyspnea and Reports dyspnea on exertion Gastrointestinal: Gastrointestinal: Denies abdominal pain Genitourinary: Genitourinary: Denies dysuria Musculoskeletal: Musculoskeletal: Reports no additional musculoskeletal complaints Integumentary/Breasts: Skin/Breast: Denies rash Neurologic: Reports system reviewed and no additional complaints, except as documented Psychiatric: Psychiatric: Reports no additional psychiatric complaints Exam Narrative: Pleasant older male enjoy watching TV, no distress Const: General: comfortable and no acute distress HENMT: General nose exam: no epistaxis Eyes: EOM: EOMs intact bilaterally Neck: Neck: supple and no JVD Resp: Effort & Inspection: normal respiratory effort Auscultation: clear to auscultation bilaterally Cardio: Rate: bradycardic Rhythm: abnormal rhythm irregularly irregular GI: Inspection: non-distended GI Palp: Yes Soft to palpation Skin: General skin exam: no rashes or lesions noted Neuro: Cognition (Neuro): normal cognition Speech: normal speech Extrem: General: no edema and no pedal edema Psych: Mental Status: mental status grossly normal Affect: normal affect Objective Data Vital Signs Vital Signs: Vital Signs - 24 hr 03/30/21 20:00 03/30/21 23:55 03/31/21 00:00 Temperature 97.0 F L 99.0 F Pulse Rate 80 52 L 54 L Respiratory Rate 18 18 Blood Pressure 139/65 127/60 Pulse Oximetry 91 94 03/31/21 04:00 03/31/21 07:50 03/31/21 08:00 Temperature 96.6 F L 97.2 F L Pulse Rate 110 H 60 69 Respiratory Rate 20 20 Blood Pressure 127/59 L 121/75 Pulse Oximetry 95 92 03/31/21 12:00 02
[2021-03-31] MEDS: RIVAROXABAN 20 MG TABLET PO (17:41)
[2021-03-31] MEDS: INSULIN GLARGINE (*BKC) 100 UNITS/ML 12 UNITS SUB-Q (20:34)
[2021-03-31] MEDS: REMDESIVIR 100 MG/NS 250 ML 100 MG/250 ML BAG 250 MG IVPB (20:35)
[2021-04-01] VITALS (10 sets, daily range): BP systolic 130–160; BP diastolic 53–69; PULSE 50–111; RESP 18–20; TEMP 35.8–37.2; O2SAT 90–95
[2021-04-01 06:20] LABS: Basophils Percent Auto 0.2 % (0.2-1.2); Eosinophils Percent Auto 0.1 % (0-4.4); Hematocrit 36.9 % (42.0-52.0); Hemoglobin 12.8 g/dL (14.0-18.0); Immature Granulocyte Absolute 0.09 K/mm3 (0.00-0.031); Immature Granulocyte Percent A 0.8 % (0-0.5); Lymphocytes Absolute Auto 0.73 K/mm3 (0.9-3.2); Lymphocytes Percent Auto 6.8 % (18.3-44.2); Mean Corpuscular HGB Conc 34.7 g/dl (32-36); Mean Corpuscular Hemoglobin 32.2 pg (26-34); Mean Corpuscular Volume 92.7 fl (80-100); Mean Platelet Volume 9.2 fl (7.4-10.4); Monocytes Percent Auto 9.4 % (2.6-8.5); Neutrophils Absolute Auto 8.9 K/mm3 (1.3-6.7); Neutrophils Percent Auto 82.7 % (45.5-73.1); Platelet Count Result 437 k/mm3 (150-375); Red Blood Count 3.98 M/mm3 (4.6-6.20); Red Cell Distribution Width 13.2 % (11.5-14.5); White Blood Count 10.8 K/mm3 (4.5-10.0)
[2021-04-01 06:34] LABS: Alanine Aminotransferase 47 U/L (4-50); Alkaline Phosphatase 46 U/L (38-126); Anion Gap 5 mmol/L (8-16); Aspartate Amino Transferase 27 U/L (17-59); Bilirubin,Total 0.7 mg/dL (0.2-1.3); Blood Urea Nitrogen 36 mg/dL (9-20); CRP 3.7 mg/dL (<1.0); Calcium 7.9 mg/dL (8.4-10.2); Carbon Dioxide 26 mmol/L (22-30); Chloride 104 mmol/L (98-107); Estimated CRCL calculation 68 ml/min; Estimated Glomerular Filt Rate > 60; Glucose 202 mg/dL (65-110); INR 2.3; Potassium 4.2 mmol/L (3.4-5.0); Prothrombin Time 24.9 Seconds (11.1-14.7); Sodium 135 mmol/L (137-145)
[2021-04-01 06:37] LABS: D Dimer 0.33 ug/mL (<0.48)
[2021-04-01 07:51] LABS: Glucose Point of Care 202 mg/dl (65-105)
[2021-04-01] MEDS: hydroCHLOROthiazide 12.5 MG CAPSULE PO (08:17)
[2021-04-01] MEDS: lisinopriL 20 MG TABLET 40 MG PO (08:17)
[2021-04-01] MEDS: amLODIPine BESYLATE 5 MG TABLET 10 MG PO (08:17)
[2021-04-01] MEDS: OMEGA 3 POLYUNSAT FATTY ACIDS 1 GM CAP PO ×2 (08:17→17:19)
[2021-04-01] MEDS: FOLIC ACID 1 MG TABLET PO (08:17)
[2021-04-01] MEDS: SODIUM CHLORIDE 1 GM TABLET PO (08:17)
[2021-04-01] MEDS: metFORMIN HCL 500 MG TABLET 1000 MG PO ×2 (08:17→17:19)
[2021-04-01] MEDS: allopurinoL 150 MG TABLET PO (08:17)
[2021-04-01] MEDS: INSULIN ASPART (*BKC) 100 UNITS/ML SUB-Q ×3 (08:18→17:19)
[2021-04-01 11:34] LABS: Glucose Point of Care 263 mg/dl (65-105)
--- NOTE | 2021-04-01 13:43 | PM.IMPN ---
Progress Note: A&P Assessment and Plan (1) Acute respiratory failure with hypoxia: Code(s): J96.01 - Acute respiratory failure with hypoxia Status: Acute Assessment and Plan: -Patient presents with mild acute hypoxic respiratory failure in the setting of COVID pneumonia in a unvaccinated patient. -Currently requiring 2-4L NC -scheduled albuterol, incentive spirometry (2) Pneumonia due to 2019-nCoV: Code(s): U07.1 - COVID-19; J12.82 - Pneumonia due to coronavirus disease 2019 Status: Acute Assessment and Plan: -decadron and remdesivir -continue supportive care -wean oxygen as tolerated -consider adding Baricitinib if oxygen requirement increases (3) Diabetes type 2, controlled: Qualifiers: Diabetes mellitus penitentiary insulin use: without marine oil terminal superintendent use Diabetes mellitus complication status: without complication Qualified Code(s): E11.9 - Type 2 diabetes mellitus without complications Code(s): E11.9 - Type 2 diabetes mellitus without complications Status: Acute Assessment and Plan: -takes Metformin 1,000 mg BID -A1c 6.1 -Given that we have started patient on Decadron we did start accuchecks ACHS, sliding scale insulin, and hypoglycemic protocol -Has been running in the 300s so increased to moderate sliding scale and started Lantus 12 units with improvement -continue monitoring (4) Elevated LFTs: Code(s): R79.89 - Other specified abnormal findings of blood chemistry Status: Acute Assessment and Plan: -Patient does have elevated transaminases likely due to his acute viral infection. -Will hold his statin therapy at this time. (5) Afib: Code(s): I48.91 - Unspecified atrial fibrillation Status: Acute Assessment and Plan: -EKG in the ER demonstrated atrial fibrillation -pt is a poor historian and does not know if he has afib. He also does not know if he is on chronic anti coagulation although he has all of his medications with him and I do not see any blood thinners -telemetry monitoring -repeat EKG also with afib -echo reviewed, Left ventricular chamber size, systolic and diastolic function are normal with no regional wall motion abnormalities with an estimated ejection fraction of 60-65%. Borderline hypertrophy. -cardiology consult -per cardiology Lovenox was switched to xaralto and Metprolol was started. he was noted to be bradycardic after one dose so we have held his metoprolol. (6) Hyponatremia: Code(s): E87.1 - Hypo-osmolality and hyponatremia Status: Acute Assessment and Plan: -urine studies pending -resolving, I have stopped his fluid restriction and salt tabs Subjective Date/time seen: 04/01/21 13:43 Interval history: 71-year-old male with past medical history of hypertension, hyperlipidemia, diabetes mellitus, admitted to the hospital for COVID 19 and was subsequently found to have new onset afib. Pt has no complaints. Denies cp, sob, palpitations, edema, N/V. On 4L NC. Noted to be bradycardic on telemetry with rate in the 40s/50s. Metoprolol was stopped yesterday. Review of Systems Review of Systems: All systems reviewed & are unremarkable except as noted in HPI and below Exam Narrative: General: No acute distress, non toxic appearing, elderly Eyes: PERRL, no scleral icterus HEENT: NCAT, external ears normal, MMM Respiratory: No respiratory distress, Lungs CTA bilaterally, no wheezing Cardiovascular: irregular rhythm, bradycardic, no murmur Abdominal: Soft, nontender, non distended, no rebound or guarding Musculoskeletal: Moves all 4 extremities, no edema Neurological: A/Ox3, speech normal, no facial asymmetry Skin: Warm, dry, no rashes Psychiatric: flat affect Objective Data Vital Signs Vital Signs: Vital Signs - 24 hr 03/31/21 16:00 03/31/21 19:58 03/31/21 20:00 Temperature 98.0 F 98.1 F Pulse Rate 54 L 50 L
[2021-04-01 16:27] LABS: Glucose Point of Care 226 mg/dl (65-105)
[2021-04-01] MEDS: RIVAROXABAN 20 MG TABLET PO (17:19)
[2021-04-01] MEDS: ALBUTEROL SULFATE (*SP) INHALER 2 PUFF INHALATION (20:01)
[2021-04-01] MEDS: INSULIN GLARGINE (*BKC) 100 UNITS/ML 12 UNITS SUB-Q (20:28)
[2021-04-01 21:21] LABS: Glucose Point of Care 214 mg/dl (65-105)
[2021-04-01] MEDS: REMDESIVIR 100 MG/NS 250 ML 100 MG/250 ML BAG 250 MG IVPB (21:39)
[2021-04-02] VITALS (16 sets, daily range): BP systolic 122–145; BP diastolic 52–74; PULSE 55–115; RESP 16–18; TEMP 35.6–36.6; O2SAT 87–97
[2021-04-02 00:39] LABS: Osmolality, Urine 821 mOsm/kg (50-1200)
[2021-04-02] MEDS: ALBUTEROL SULFATE (*SP) INHALER 2 PUFF INHALATION ×3 (02:18→13:54)
--- NOTE | 2021-04-02 04:24 | PHAR ---
PHARMACY VERIFIED HOME MED: DESVENLAFAXINE 100 MG TABLET TAKE ONE TABLET BY MOUTH ONCE DAILY
[2021-04-02 06:41] LABS: Basophils Percent Auto 0.2 % (0.2-1.2); Eosinophils Percent Auto 0.1 % (0-4.4); Hemoglobin 12.8 g/dL (14.0-18.0); Immature Granulocyte Absolute 0.08 K/mm3 (0.00-0.031); Immature Granulocyte Percent A 0.9 % (0-0.5); Lymphocytes Absolute Auto 0.74 K/mm3 (0.9-3.2); Lymphocytes Percent Auto 8.2 % (18.3-44.2); Mean Corpuscular HGB Conc 32.8 g/dl (32-36); Mean Corpuscular Hemoglobin 32.2 pg (26-34); Mean Corpuscular Volume 98.2 fl (80-100); Mean Platelet Volume 9.3 fl (7.4-10.4); Monocytes Absolute Auto 0.8 K/mm3 (0.1-0.6); Monocytes Percent Auto 9.1 % (2.6-8.5); Neutrophils Absolute Auto 7.3 K/mm3 (1.3-6.7); Neutrophils Percent Auto 81.5 % (45.5-73.1); Platelet Count Result 402 k/mm3 (150-375); Red Blood Count 3.97 M/mm3 (4.6-6.20); Red Cell Distribution Width 13.2 % (11.5-14.5)
[2021-04-02 06:54] LABS: Alanine Aminotransferase 36 U/L (4-50); Albumin Level 2.9 g/dL (3.5-5.1); Alkaline Phosphatase 43 U/L (38-126); Anion Gap 8 mmol/L (8-16); Aspartate Amino Transferase 24 U/L (17-59); Bilirubin,Total 0.7 mg/dL (0.2-1.3); Blood Urea Nitrogen 30 mg/dL (9-20); Calcium 7.9 mg/dL (8.4-10.2); Carbon Dioxide 21 mmol/L (22-30); Chloride 105 mmol/L (98-107); Estimated CRCL calculation 76 ml/min; Estimated Glomerular Filt Rate > 60; Glucose 239 mg/dL (65-110); Potassium 4.2 mmol/L (3.4-5.0); Sodium 134 mmol/L (137-145)
[2021-04-02 07:56] LABS: Glucose Point of Care 222 mg/dl (65-105)
[2021-04-02] MEDS: FOLIC ACID 1 MG TABLET PO (08:56)
[2021-04-02] MEDS: allopurinoL 150 MG TABLET PO (08:56)
[2021-04-02] MEDS: amLODIPine BESYLATE 5 MG TABLET 10 MG PO (08:57)
[2021-04-02] MEDS: lisinopriL 20 MG TABLET 40 MG PO (08:58)
[2021-04-02] MEDS: hydroCHLOROthiazide 12.5 MG CAPSULE PO (08:58)
[2021-04-02] MEDS: OMEGA 3 POLYUNSAT FATTY ACIDS 1 GM CAP PO ×2 (08:58→16:48)
[2021-04-02] MEDS: metFORMIN HCL 500 MG TABLET 1000 MG PO ×2 (08:58→16:48)
[2021-04-02] MEDS: INSULIN ASPART (*BKC) 100 UNITS/ML SUB-Q ×5 (08:59→16:47)
--- NOTE | 2021-04-02 09:31 | PM.IMPN ---
Progress Note: A&P Assessment and Plan (1) Acute respiratory failure with hypoxia: Code(s): J96.01 - Acute respiratory failure with hypoxia Status: Acute Assessment and Plan: -Patient presents with mild acute hypoxic respiratory failure in the setting of COVID pneumonia in a unvaccinated patient. -Currently requiring 2-4L NC -scheduled albuterol, incentive spirometry , nebulizer txs added -persistently dyspneic with ambulation and exertion (2) Pneumonia due to 2019-nCoV: Code(s): U07.1 - COVID-19; J12.82 - Pneumonia due to coronavirus disease 2019 Status: Acute Assessment and Plan: -decadron and remdesivir course #1 completed on 04/01, started on course #2 today 04/02. -continue supportive care -wean oxygen as tolerated, 04/01 on 4 L NC, 04/02 weaned to 2-3 L O2 NC, -get Home O2 study completed prior to discharge -needing Nebulizer txs -consider adding Baricitinib if oxygen unable to wean and/or requirement increases -persistently dyspneic with ambulation and exertion (3) Diabetes type 2, controlled: Qualifiers: Diabetes mellitus complication status: without complication Diabetes mellitus skilled nursing insulin use: without skilled nursing use Qualified Code(s): E11.9 - Type 2 diabetes mellitus without complications Code(s): E11.9 - Type 2 diabetes mellitus without complications Status: Acute Assessment and Plan: -takes Metformin 1,000 mg BID -A1c 6.1 -Given that we have started patient on Decadron we did start accuchecks ACHS, sliding scale insulin, and hypoglycemic protocol -Has been running in the 300s so increased to moderate sliding scale and started Lantus 12 units with improvement -continue monitoring -glucose 239 and 222 today, despite on High Scale SSI and Lantus dosing, due to Decadron. Added 4 units Aspart with each meal, TID. (4) Elevated LFTs: Code(s): R79.89 - Other specified abnormal findings of blood chemistry Status: Acute Assessment and Plan: -Patient does have elevated transaminases likely due to his acute viral infection. -HOLDING his statin therapy at this time. -LFTs ok today. -restart statin at discharge. (5) Afib: Code(s): I48.91 - Unspecified atrial fibrillation Status: Acute Assessment and Plan: -EKG in the ER demonstrated atrial fibrillation -pt is a poor historian and does not know if he has afib. He also does not know if he is on chronic anti coagulation although he has all of his medications with him and I do not see any blood thinners -telemetry monitoring -repeat EKG also with afib -echo reviewed, Left ventricular chamber size, systolic and diastolic function are normal with no regional wall motion abnormalities with an estimated ejection fraction of 60-65%. Borderline hypertrophy. -cardiology consult -per cardiology Lovenox was switched to xaralto and Metprolol was started. he was noted to be bradycardic after one dose so we have held his metoprolol. - persistent Afib (6) Hyponatremia: Code(s): E87.1 - Hypo-osmolality and hyponatremia Status: Acute Assessment and Plan: -urine studies pending -resolving, stopped his fluid restriction and salt tabs discontinued on 04/01 -sodium 134 today -may need /consider regular diet to stay WNL. Subjective Date/time seen: 04/02/21 09:31 Interval history: Larry is a 71-year-old male with past medical history of hypertension, hyperlipidemia, diabetes mellitus, admitted to the hospital for COVID 19 and was subsequently found to have new onset afib. Pt has no complaints, states he doesn't feel SOB with trips to the bathroom, but his nursing staff state that he is very dyspneic on activity and ambulation especially. He will need a Home O2 study prior to discharge. But today, he is still dependent on supplemental O2. Denies cp, sob, palpitations, edema, N/V. On 2-3L today, weaned from the 4L NC he needed yesterday. On 03/31, he was osmani
[2021-04-02 11:47] LABS: Glucose Point of Care 336 mg/dl (65-105)
[2021-04-02] MEDS: SALINE 0.65% NAS SOLN 44 ML BTL 1 SPRAY NASAL ×2 (12:29→17:46)
[2021-04-02 13:46] LABS: INR 1.7; Prothrombin Time 19.3 Seconds (11.1-14.7)
[2021-04-02] MEDS: IPRATROPIUM BR 0.02% INH SOLN 0.5 MG/2.5 ML VIAL INHALATION ×2 (13:54→20:13)
[2021-04-02] MEDS: ALBUTEROL SULFATE NEB 2.5 MG/0.5 ML INH INHALATION ×2 (13:54→20:13)
[2021-04-02 16:02] LABS: Glucose Point of Care 206 mg/dl (65-105)
[2021-04-02] MEDS: RIVAROXABAN 20 MG TABLET PO (16:48)
[2021-04-02] MEDS: INSULIN GLARGINE (*BKC) 100 UNITS/ML 12 UNITS SUB-Q (20:48)
[2021-04-02] MEDS: REMDESIVIR 100 MG/NS 250 ML 100 MG/250 ML BAG 250 MG IVPB (20:48)
[2021-04-02 20:59] LABS: Glucose Point of Care 190 mg/dl (65-105)
[2021-04-03] VITALS (11 sets, daily range): BP systolic 125–155; BP diastolic 60–74; PULSE 51–88; RESP 16–20; TEMP 35.6–36.4; O2SAT 91–99
[2021-04-03] MEDS: SALINE 0.65% NAS SOLN 44 ML BTL 1 SPRAY NASAL ×3 (00:19→18:59)
[2021-04-03] MEDS: ALBUTEROL SULFATE NEB 2.5 MG/0.5 ML INH INHALATION ×2 (01:58→09:24)
[2021-04-03] MEDS: IPRATROPIUM BR 0.02% INH SOLN 0.5 MG/2.5 ML VIAL INHALATION ×3 (01:58→14:47)
[2021-04-03 06:44] LABS: Hematocrit 37.6 % (42.0-52.0); Hemoglobin 12.6 g/dL (14.0-18.0); Mean Corpuscular HGB Conc 33.5 g/dl (32-36); Mean Corpuscular Hemoglobin 32.1 pg (26-34); Mean Corpuscular Volume 95.9 fl (80-100); Mean Platelet Volume 9.4 fl (7.4-10.4); Platelet Count Result 413 k/mm3 (150-375); Red Blood Count 3.92 M/mm3 (4.6-6.20); Red Cell Distribution Width 13.2 % (11.5-14.5); White Blood Count 7.9 K/mm3 (4.5-10.0)
[2021-04-03 06:59] LABS: INR 2.4; Prothrombin Time 25.1 Seconds (11.1-14.7)
[2021-04-03 07:06] LABS: Alanine Aminotransferase 32 U/L (4-50); Albumin Level 2.9 g/dL (3.5-5.1); Alkaline Phosphatase 29 U/L (38-126); Anion Gap 5 mmol/L (8-16); Aspartate Amino Transferase 29 U/L (17-59); Bilirubin,Total 0.8 mg/dL (0.2-1.3); Blood Urea Nitrogen 29 mg/dL (9-20); Calcium 8.4 mg/dL (8.4-10.2); Carbon Dioxide 24 mmol/L (22-30); Chloride 106 mmol/L (98-107); Estimated CRCL calculation 76 ml/min; Estimated Glomerular Filt Rate > 60; Glucose 159 mg/dL (65-110); Potassium 4.6 mmol/L (3.4-5.0); Sodium 135 mmol/L (137-145)
[2021-04-03 07:44] LABS: Glucose Point of Care 141 mg/dl (65-105)
[2021-04-03] MEDS: lisinopriL 20 MG TABLET 40 MG PO (10:14)
[2021-04-03] MEDS: hydroCHLOROthiazide 12.5 MG CAPSULE PO (10:14)
[2021-04-03] MEDS: metFORMIN HCL 500 MG TABLET 1000 MG PO (10:15)
[2021-04-03] MEDS: amLODIPine BESYLATE 5 MG TABLET 10 MG PO (10:15)
[2021-04-03] MEDS: allopurinoL 150 MG TABLET PO (10:15)
[2021-04-03] MEDS: OMEGA 3 POLYUNSAT FATTY ACIDS 1 GM CAP PO ×2 (10:15→17:12)
[2021-04-03] MEDS: FOLIC ACID 1 MG TABLET PO (10:15)
[2021-04-03] MEDS: INSULIN ASPART (*BKC) 100 UNITS/ML SUB-Q ×3 (10:24→13:32)
[2021-04-03 11:28] LABS: Glucose Point of Care 310 mg/dl (65-105)
--- NOTE | 2021-04-03 11:38 | P.PNIM_ITS ---
Progress Note: A&P Assessment and Plan (1) Acute respiratory failure with hypoxia: Code(s): J96.01 - Acute respiratory failure with hypoxia Status: Acute Assessment and Plan: Patient presents with mild acute hypoxic respiratory failure in the setting of COVID pneumonia in a unvaccinated patient. * CTA showed multifocal lung disease consistent COVID-19 pneumonia. No evidence of PE * He is requiring 4 L supplemental O2 per nasal cannula * Continue supplemental O2 as needed with goal saturation 90% or above (2) Pneumonia due to 2019-nCoV: Code(s): U07.1 - COVID-19; J12.82 - Pneumonia due to coronavirus disease 2018 Status: Acute Assessment and Plan: Positive COVID test on 03/28/2021. CXR and CTA showed diffuse lung disease * Continue dexamethasone and remdesivir #7 today. Monitor LFTs * Supplemental O2 as above * Supportive care to include bronchodilators, expectorants, incentive spirometry * Continue isolation precautions * Patient has not been vaccinated for COVID-19 (3) Diabetes type 2, controlled: Qualifiers: Diabetes mellitus snf insulin use: without remote computer terminal operator use Diabetes mellitus complication status: without complication Qualified Code(s): E11.9 - Type 2 diabetes mellitus without complications Code(s): E11.9 - Type 2 diabetes mellitus without complications Status: Acute Assessment and Plan: Well controlled. A1c is 6.1 * Blood sugars have been running high while on steroids, therefore Lantus 12 units HS was added and 4 units NovoLog with meals * Continue Accu-Cheks, sliding scale insulin, hypoglycemic protocol * Continue home metformin 1000 mg b.i.d. * Monitor glucose trends and adjust insulin regimen as needed (4) Elevated LFTs: Code(s): R79.89 - Other specified abnormal findings of blood chemistry Status: Acute Assessment and Plan: Resolved. Likely secondary to acute viral illness * Statins initially were placed on hold * Will resume statin on discharge (5) Afib: Code(s): I48.91 - Unspecified atrial fibrillation Status: Acute Assessment and Plan: EKG on presentation showed atrial fibrillation. New onset felt to be likely related to COVID pneumonia * Seen in consultation by Cardiology * Started on metoprolol succinate 25 mg daily, subsequent discontinued secondary to bradycardia * Started Xarelto 20 mg daily; per a spear care coordination and is affordable * Cardiology to follow intermittently. He will need outpatient follow-up (6) Hyponatremia: Code(s): E87.1 - Hypo-osmolality and hyponatremia Status: Acute Assessment and Plan: Resolved. Sodium is 135 today * Fluid restriction has been discontinued * Continue to monitor sodium levels daily Subjective Date/time seen: 04/03/21 11:38 Interval history: Date of admission: 04/03/2021 Larry Condon is a 71-year-old male with a history of hypertension, type 2 diabetes mellitus, diastolic dysfunction, hyperlipidemia who is seen in follow- up for COVID-19 pneumonia. He is feeling very well today. His only complaint is that he has not been able to and walk around. He does not think he needs assistance with ambulation and states he has been walking independently. He denies shortness of breath. Denies cough or chest pain. Denies anosmia or dysgeusia. No abdominal pain, nausea, or vomiting. His appetite is good. Denies weakness, dizziness, or lightheadedness. Denies headache or body aches. No confusion. Denies dysuria, hematuria. Reports regular bowel movements,
--- NOTE | 2021-04-03 11:38 | PM.IMPN ---
Progress Note: A&P Assessment and Plan (1) Acute respiratory failure with hypoxia: Code(s): J96.01 - Acute respiratory failure with hypoxia Status: Acute Assessment and Plan: Patient presents with mild acute hypoxic respiratory failure in the setting of COVID pneumonia in a unvaccinated patient. CTA showed multifocal lung disease consistent COVID-19 pneumonia. No evidence of PE He is requiring 4 L supplemental O2 per nasal cannula Continue supplemental O2 as needed with goal saturation 90% or above (2) Pneumonia due to 2019-nCoV: Code(s): U07.1 - COVID-19; J12.82 - Pneumonia due to coronavirus disease 2018 Status: Acute Assessment and Plan: Positive COVID test on 03/28/2021. CXR and CTA showed diffuse lung disease Continue dexamethasone and remdesivir #7 today. Monitor LFTs Supplemental O2 as above Supportive care to include bronchodilators, expectorants, incentive spirometry Continue isolation precautions Patient has not been vaccinated for COVID-19 (3) Diabetes type 2, controlled: Qualifiers: Diabetes mellitus hand spinner insulin use: without custodial use Diabetes mellitus complication status: without complication Qualified Code(s): E11.9 - Type 2 diabetes mellitus without complications Code(s): E11.9 - Type 2 diabetes mellitus without complications Status: Acute Assessment and Plan: Well controlled. A1c is 6.1 Blood sugars have been running high while on steroids, therefore Lantus 12 units HS was added and 4 units NovoLog with meals Continue Accu-Cheks, sliding scale insulin, hypoglycemic protocol Continue home metformin 1000 mg b.i.d. Monitor glucose trends and adjust insulin regimen as needed (4) Elevated LFTs: Code(s): R79.89 - Other specified abnormal findings of blood chemistry Status: Acute Assessment and Plan: Resolved. Likely secondary to acute viral illness Statins initially were placed on hold Will resume statin on discharge (5) Afib: Code(s): I48.91 - Unspecified atrial fibrillation Status: Acute Assessment and Plan: EKG on presentation showed atrial fibrillation. New onset felt to be likely related to COVID pneumonia Seen in consultation by Cardiology Started on metoprolol succinate 25 mg daily, subsequent discontinued secondary to bradycardia Started Xarelto 20 mg daily; per a spear care coordination and is affordable Cardiology to follow intermittently. He will need outpatient follow-up (6) Hyponatremia: Code(s): E87.1 - Hypo-osmolality and hyponatremia Status: Acute Assessment and Plan: Resolved. Sodium is 135 today Fluid restriction has been discontinued Continue to monitor sodium levels daily Subjective Date/time seen: 04/03/21 11:38 Interval history: Date of admission: 04/03/2021 Larry Condon is a 71-year-old male with a history of hypertension, type 2 diabetes mellitus, diastolic dysfunction, hyperlipidemia who is seen in follow-up for COVID-19 pneumonia. He is feeling very well today. His only complaint is that he has not been able to and walk around. He does not think he needs assistance with ambulation and states he has been walking independently. He denies shortness of breath. Denies cough or chest pain. Denies anosmia or dysgeusia. No abdominal pain, nausea, or vomiting. His appetite is good. Denies weakness, dizziness, or lightheadedness. Denies headache or body aches. No confusion. Denies dysuria, hematuria. Reports regular bowel movements, denies diarrhea Review of Systems Review of Systems: All systems reviewed & are unremarkable except as noted in HPI and below Exam Narrative: General: Well-nourished, well-appearing 71 year-old male, sitting up in bed, comfortable, NARD Neuro: awake, alert and oriented x4 (difficulty recalling name of hospital but knew it was in [place]), speech clear, no focal neuro def
[2021-04-03] MEDS: ALBUTEROL SULFATE (*SP) AEROSOL 1 PUFF 2 PUFF INHALATION ×2 (14:55→20:19)
[2021-04-03 16:53] LABS: Glucose Point of Care 50 mg/dl (65-105)
[2021-04-03 17:07] LABS: Glucose Point of Care 62 mg/dl (65-105)
[2021-04-03] MEDS: RIVAROXABAN 20 MG TABLET PO (17:12)
[2021-04-03 17:49] LABS: Glucose Point of Care 84 mg/dl (65-105)
[2021-04-03] MEDS: INSULIN GLARGINE (*BKC) 100 UNITS/ML 12 UNITS SUB-Q (22:00)
[2021-04-03 22:16] LABS: Glucose Point of Care 166 mg/dl (65-105)
[2021-04-04] VITALS (13 sets, daily range): BP systolic 115–146; BP diastolic 54–65; PULSE 55–106; RESP 18; TEMP 35.7–36.8; O2SAT 94–97
[2021-04-04] MEDS: REMDESIVIR 100 MG/NS 250 ML 100 MG/250 ML BAG 250 MG IVPB ×2 (00:44→21:52)
[2021-04-04] MEDS: SALINE 0.65% NAS SOLN 44 ML BTL 1 SPRAY NASAL ×4 (00:50→21:54)
[2021-04-04] MEDS: ALBUTEROL SULFATE (*SP) AEROSOL 1 PUFF 2 PUFF INHALATION ×4 (02:51→19:55)
[2021-04-04 06:35] LABS: Hematocrit 36.2 % (42.0-52.0); Hemoglobin 12.1 g/dL (14.0-18.0); Mean Corpuscular HGB Conc 33.4 g/dl (32-36); Mean Corpuscular Hemoglobin 32.5 pg (26-34); Mean Corpuscular Volume 97.3 fl (80-100); Mean Platelet Volume 9.4 fl (7.4-10.4); Platelet Count Result 364 k/mm3 (150-375); Red Blood Count 3.72 M/mm3 (4.6-6.20); Red Cell Distribution Width 13.2 % (11.5-14.5)
[2021-04-04 06:47] LABS: Alanine Aminotransferase 24 U/L (4-50); Albumin Level 2.8 g/dL (3.5-5.1); Alkaline Phosphatase 45 U/L (38-126); Anion Gap 6 mmol/L (8-16); Aspartate Amino Transferase 23 U/L (17-59); Bilirubin,Total 0.5 mg/dL (0.2-1.3); Blood Urea Nitrogen 31 mg/dL (9-20); CRP 1.6 mg/dL (<1.0); Calcium 8.4 mg/dL (8.4-10.2); Carbon Dioxide 22 mmol/L (22-30); Chloride 103 mmol/L (98-107); Estimated CRCL calculation 86 ml/min; Estimated Glomerular Filt Rate > 60; Glucose 264 mg/dL (65-110); Lactate Dehydrogenase 636 U/L (313-618); Potassium 4.3 mmol/L (3.4-5.0); Sodium 131 mmol/L (137-145)
[2021-04-04 06:57] LABS: INR 2.5; Prothrombin Time 26.4 Seconds (11.1-14.7)
[2021-04-04 08:11] LABS: Glucose Point of Care 304 mg/dl (65-105)
[2021-04-04] MEDS: hydroCHLOROthiazide 12.5 MG CAPSULE PO (09:25)
[2021-04-04] MEDS: amLODIPine BESYLATE 5 MG TABLET 10 MG PO (09:26)
[2021-04-04] MEDS: allopurinoL 150 MG TABLET PO (09:26)
[2021-04-04] MEDS: metFORMIN HCL 500 MG TABLET 1000 MG PO ×2 (09:26→16:59)
[2021-04-04] MEDS: lisinopriL 20 MG TABLET 40 MG PO (09:26)
[2021-04-04] MEDS: OMEGA 3 POLYUNSAT FATTY ACIDS 1 GM CAP PO ×2 (09:26→17:00)
[2021-04-04] MEDS: FOLIC ACID 1 MG TABLET PO (09:26)
[2021-04-04] MEDS: INSULIN ASPART (*BKC) 100 UNITS/ML SUB-Q ×4 (09:32→16:59)
[2021-04-04 11:19] LABS: Glucose Point of Care 350 mg/dl (65-105)
[2021-04-04] MEDS: INSULIN ASPART (*BKC) 100 UNITS/ML 6 UNITS SUB-Q ×2 (12:34→16:57)
--- NOTE | 2021-04-04 15:18 | PCCCNOTE ---
On 04/04/21, the student, [Ariella Vanegas], provided care and completed [facility] documentation on this patient. I have reviewed the student's documentation and agree with the findings.
[2021-04-04 16:21] LABS: Glucose Point of Care 287 mg/dl (65-105)
[2021-04-04] MEDS: RIVAROXABAN 20 MG TABLET PO (17:00)
--- NOTE | 2021-04-04 17:16 | P.PNIM_ITS ---
Progress Note: A&P Assessment and Plan (1) Acute respiratory failure with hypoxia: Code(s): J96.01 - Acute respiratory failure with hypoxia Status: Acute Assessment and Plan: Patient presents with mild acute hypoxic respiratory failure in the setting of COVID pneumonia in a unvaccinated patient. * CTA showed multifocal lung disease consistent COVID-19 pneumonia. No evidence of PE * He is requiring 3 L supplemental O2 per nasal cannula * Continue supplemental O2 as needed with goal saturation 90% or above (2) Pneumonia due to 2019-nCoV: Code(s): U07.1 - COVID-19; J12.82 - Pneumonia due to coronavirus disease 2018 Status: Acute Assessment and Plan: Positive COVID test on 03/28/2021. CXR and CTA showed diffuse lung disease * Continue dexamethasone and remdesivir #8 today. Monitor LFTs * Supplemental O2 as above * Supportive care to include bronchodilators, expectorants, incentive spirometry * Continue isolation precautions * Patient has not been vaccinated for COVID-19 (3) Diabetes type 2, controlled: Qualifiers: Diabetes mellitus complication status: without complication Diabetes mellitus assistant terminal manager insulin use: without penitentiary use Qualified Code(s): E11.9 - Type 2 diabetes mellitus without complications Code(s): E11.9 - Type 2 diabetes mellitus without complications Status: Acute Assessment and Plan: Well controlled. A1c is 6.1 * Blood sugars have been running high while on steroids, therefore long acting insulin and scheduled mealtime insulin added * Increase Lantus to 15 units qHS * Increase Novolog to 6 units TID with meals * Continue Accu-Cheks, sliding scale insulin, hypoglycemic protocol * Continue home metformin 1000 mg b.i.d. * Monitor glucose trends and adjust insulin regimen as needed (4) Elevated LFTs: Code(s): R79.89 - Other specified abnormal findings of blood chemistry Status: Acute Assessment and Plan: Resolved. Likely secondary to acute viral illness * Statins initially were placed on hold * Will resume statin on discharge (5) Afib: Code(s): I48.91 - Unspecified atrial fibrillation Status: Acute Assessment and Plan: EKG on presentation showed atrial fibrillation. New onset felt to be likely related to COVID pneumonia * Seen in consultation by Cardiology * Started on metoprolol succinate 25 mg daily, subsequently discontinued secondary to bradycardia * Continue Xarelto 20 mg daily; priced per care coordination and is affordable * Rate remains controlled * Cardiology to follow intermittently. He will need outpatient follow-up (6) Hyponatremia: Code(s): E87.1 - Hypo-osmolality and hyponatremia Status: Acute Assessment and Plan: Improved. Sodium 131 today * Fluid restriction has been discontinued * Continue to monitor sodium levels daily Subjective Date/time seen: 04/04/21 17:16 Interval history: Date of admission: 04/04/2021 Larry Condon is a 71-year-old male with a history of hypertension, type 2 diabetes mellitus, diastolic dysfunction, hyperlipidemia who is seen in follow- up for COVID-19 pneumonia. He feels well today. He offers no complaints. His shortness of breath has resolved. He denies cough. He has been able to get up and walk around independently. Denies urinary symptoms. Reports regular bowel movements. Appetite has been good. Denies nausea, vomiting, fever, or chills. He is feeling ready to go home soon.\ Review of Systems Review of Syste
--- NOTE | 2021-04-04 17:16 | PM.IMPN ---
Progress Note: A&P Assessment and Plan (1) Acute respiratory failure with hypoxia: Code(s): J96.01 - Acute respiratory failure with hypoxia Status: Acute Assessment and Plan: Patient presents with mild acute hypoxic respiratory failure in the setting of COVID pneumonia in a unvaccinated patient. CTA showed multifocal lung disease consistent COVID-19 pneumonia. No evidence of PE He is requiring 3 L supplemental O2 per nasal cannula Continue supplemental O2 as needed with goal saturation 90% or above (2) Pneumonia due to 2019-nCoV: Code(s): U07.1 - COVID-19; J12.82 - Pneumonia due to coronavirus disease 2018 Status: Acute Assessment and Plan: Positive COVID test on 03/28/2021. CXR and CTA showed diffuse lung disease Continue dexamethasone and remdesivir #8 today. Monitor LFTs Supplemental O2 as above Supportive care to include bronchodilators, expectorants, incentive spirometry Continue isolation precautions Patient has not been vaccinated for COVID-19 (3) Diabetes type 2, controlled: Qualifiers: Diabetes mellitus complication status: without complication Diabetes mellitus intermodal truck driver insulin use: without longterm use Qualified Code(s): E11.9 - Type 2 diabetes mellitus without complications Code(s): E11.9 - Type 2 diabetes mellitus without complications Status: Acute Assessment and Plan: Well controlled. A1c is 6.1 Blood sugars have been running high while on steroids, therefore long acting insulin and scheduled mealtime insulin added Increase Lantus to 15 units qHS Increase Novolog to 6 units TID with meals Continue Accu-Cheks, sliding scale insulin, hypoglycemic protocol Continue home metformin 1000 mg b.i.d. Monitor glucose trends and adjust insulin regimen as needed (4) Elevated LFTs: Code(s): R79.89 - Other specified abnormal findings of blood chemistry Status: Acute Assessment and Plan: Resolved. Likely secondary to acute viral illness Statins initially were placed on hold Will resume statin on discharge (5) Afib: Code(s): I48.91 - Unspecified atrial fibrillation Status: Acute Assessment and Plan: EKG on presentation showed atrial fibrillation. New onset felt to be likely related to COVID pneumonia Seen in consultation by Cardiology Started on metoprolol succinate 25 mg daily, subsequently discontinued secondary to bradycardia Continue Xarelto 20 mg daily; priced per care coordination and is affordable Rate remains controlled Cardiology to follow intermittently. He will need outpatient follow-up (6) Hyponatremia: Code(s): E87.1 - Hypo-osmolality and hyponatremia Status: Acute Assessment and Plan: Improved. Sodium 131 today Fluid restriction has been discontinued Continue to monitor sodium levels daily Subjective Date/time seen: 04/04/21 17:16 Interval history: Date of admission: 04/04/2021 Larry Condon is a 71-year-old male with a history of hypertension, type 2 diabetes mellitus, diastolic dysfunction, hyperlipidemia who is seen in follow-up for COVID-19 pneumonia. He feels well today. He offers no complaints. His shortness of breath has resolved. He denies cough. He has been able to get up and walk around independently. Denies urinary symptoms. Reports regular bowel movements. Appetite has been good. Denies nausea, vomiting, fever, or chills. He is feeling ready to go home soon.\ Review of Systems Review of Systems: All systems reviewed & are unremarkable except as noted in HPI and below Exam Narrative: General: Well-nourished, well-appearing 71 year-old male, sitting in a chair, comfortable, NARD Neuro: awake, alert and oriented x4, answers all questions appropriately, speech clear, no focal neuro deficits noted HEENMT: normocephalic, atraumatic, EOMI, sclerae anicteric, moist oral mucosa Respiratory: clear to auscultati
[2021-04-04] MEDS: INSULIN GLARGINE (*BKC) 100 UNITS/ML 15 UNITS SUB-Q (21:51)
[2021-04-04 22:10] LABS: Glucose Point of Care 224 mg/dl (65-105)
[2021-04-05] VITALS (8 sets, daily range): BP systolic 120–138; BP diastolic 53–82; PULSE 60–97; RESP 16–18; TEMP 35.8–36.8; O2SAT 92–94
[2021-04-05] MEDS: ALBUTEROL SULFATE (*SP) AEROSOL 1 PUFF 2 PUFF INHALATION ×4 (02:02→20:35)
[2021-04-05 07:46] LABS: Hematocrit 37.7 % (42.0-52.0); Hemoglobin 12.7 g/dL (14.0-18.0); Mean Corpuscular HGB Conc 33.7 g/dl (32-36); Mean Platelet Volume 9.5 fl (7.4-10.4); Platelet Count Result 403 k/mm3 (150-375); Red Blood Count 3.97 M/mm3 (4.6-6.20); Red Cell Distribution Width 13.2 % (11.5-14.5); White Blood Count 9.1 K/mm3 (4.5-10.0)
[2021-04-05 08:14] LABS: INR 1.6; Prothrombin Time 18.6 Seconds (11.1-14.7)
[2021-04-05 08:17] LABS: Glucose Point of Care 107 mg/dl (65-105)
[2021-04-05] MEDS: FOLIC ACID 1 MG TABLET PO (08:40)
[2021-04-05] MEDS: lisinopriL 20 MG TABLET 40 MG PO (08:40)
[2021-04-05] MEDS: amLODIPine BESYLATE 5 MG TABLET 10 MG PO (08:40)
[2021-04-05] MEDS: INSULIN ASPART (*BKC) 100 UNITS/ML 6 UNITS SUB-Q ×3 (08:40→17:35)
[2021-04-05] MEDS: metFORMIN HCL 500 MG TABLET 1000 MG PO ×2 (08:40→17:34)
[2021-04-05] MEDS: OMEGA 3 POLYUNSAT FATTY ACIDS 1 GM CAP PO ×2 (08:40→17:34)
[2021-04-05] MEDS: hydroCHLOROthiazide 12.5 MG CAPSULE PO (08:40)
[2021-04-05] MEDS: allopurinoL 150 MG TABLET PO (08:40)
[2021-04-05 08:57] LABS: Alanine Aminotransferase 22 U/L (4-50); Albumin Level 2.8 g/dL (3.5-5.1); Alkaline Phosphatase 32 U/L (38-126); Anion Gap 1 mmol/L (8-16); Aspartate Amino Transferase 26 U/L (17-59); Bilirubin,Total 0.7 mg/dL (0.2-1.3); Blood Urea Nitrogen 25 mg/dL (9-20); Calcium 8.6 mg/dL (8.4-10.2); Carbon Dioxide 29 mmol/L (22-30); Chloride 102 mmol/L (98-107); Estimated CRCL calculation 86 ml/min; Estimated Glomerular Filt Rate > 60; Glucose 126 mg/dL (65-110); Lactate Dehydrogenase 638 U/L (313-618); Potassium 4.4 mmol/L (3.4-5.0); Sodium 132 mmol/L (137-145)
--- NOTE | 2021-04-05 09:28 | PCNWS ---
Weekly nutritional screen. Patient screened in for 7 day length of stay. Patient is tolerating current diet with adequate intake. No weight loss reported. No nutritional needs at this time. Will follow up in 7 days if pt has not been d/c.
[2021-04-05 12:21] LABS: Glucose Point of Care 127 mg/dl (65-105)
[2021-04-05] MEDS: SALINE 0.65% NAS SOLN 44 ML BTL 1 SPRAY NASAL ×3 (12:58→23:27)
--- NOTE | 2021-04-05 14:36 | P.PNIM_ITS ---
Progress Note: A&P Assessment and Plan (1) Acute respiratory failure with hypoxia: Code(s): J96.01 - Acute respiratory failure with hypoxia Status: Acute Assessment and Plan: Patient presents with mild acute hypoxic respiratory failure in the setting of COVID pneumonia in a unvaccinated patient. * CTA showed multifocal lung disease consistent COVID-19 pneumonia. No evidence of PE * He is requiring 2.5 L supplemental O2 per nasal cannula * Continue supplemental O2 as needed with goal saturation 90% or above (2) Pneumonia due to 2019-nCoV: Code(s): U07.1 - COVID-19; J12.82 - Pneumonia due to coronavirus disease 2018 Status: Acute Assessment and Plan: Positive COVID test on 03/28/2021. CXR and CTA showed diffuse lung disease * Continue dexamethasone and remdesivir #9 today. Monitor LFTs * Supplemental O2 as above * Supportive care to include bronchodilators, expectorants, incentive spirometry * Continue isolation precautions * Patient has not been vaccinated for COVID-19 (3) Diabetes type 2, controlled: Qualifiers: Diabetes mellitus correction insulin use: without correction use Diabetes mellitus complication status: without complication Qualified Code(s): E11.9 - Type 2 diabetes mellitus without complications Code(s): E11.9 - Type 2 diabetes mellitus without complications Status: Acute Assessment and Plan: Well controlled. A1c is 6.1 * Blood sugars have been running high while on steroids, therefore long acting insulin and scheduled mealtime insulin added * Improved with fasting glucose 126 today * Continue Lantus 15 units qHS * Novolog 6 units TID with meals * Continue Accu-Cheks, sliding scale insulin, hypoglycemic protocol * Continue home metformin 1000 mg b.i.d. * Monitor glucose trends and adjust insulin regimen as needed (4) Elevated LFTs: Code(s): R79.89 - Other specified abnormal findings of blood chemistry Status: Acute Assessment and Plan: Resolved. Likely secondary to acute viral illness * Statins initially were placed on hold * Will resume statin on discharge (5) Afib: Code(s): I48.91 - Unspecified atrial fibrillation Status: Acute Assessment and Plan: EKG on presentation showed atrial fibrillation. New onset felt to be likely related to COVID pneumonia * Seen in consultation by Cardiology * Started on metoprolol succinate 25 mg daily, subsequently discontinued secondary to bradycardia * Continue Xarelto 20 mg daily; priced per care coordination and is affordable * Rate remains controlled * Cardiology to follow intermittently. He will need outpatient follow-up (6) Hyponatremia: Code(s): E87.1 - Hypo-osmolality and hyponatremia Status: Acute Assessment and Plan: Improved. Sodium 132 today * Fluid restriction has been discontinued * Continue to monitor sodium levels daily Subjective Date/time seen: 04/05/21 14:36 Interval history: Date of admission: 04/05/2021 Larry Condon is a 71-year-old male with a history of hypertension, type 2 diabetes mellitus, diastolic dysfunction, hyperlipidemia who is seen in follow- up for COVID-19 pneumonia. Is feeling fairly well today. He endorses cough productive of white sputum. Shortness of breah seems to have resolved. He is ambulating without difficulty. Denies nausea, vomiting, fever, or chills. Appetite has been good. Denies palpitations. No chest pain. He has no additional complaints. Review of Systems Review of Sy
--- NOTE | 2021-04-05 14:36 | PM.IMPN ---
Progress Note: A&P Assessment and Plan (1) Acute respiratory failure with hypoxia: Code(s): J96.01 - Acute respiratory failure with hypoxia Status: Acute Assessment and Plan: Patient presents with mild acute hypoxic respiratory failure in the setting of COVID pneumonia in a unvaccinated patient. CTA showed multifocal lung disease consistent COVID-19 pneumonia. No evidence of PE He is requiring 2.5 L supplemental O2 per nasal cannula Continue supplemental O2 as needed with goal saturation 90% or above (2) Pneumonia due to 2019-nCoV: Code(s): U07.1 - COVID-19; J12.82 - Pneumonia due to coronavirus disease 2018 Status: Acute Assessment and Plan: Positive COVID test on 03/28/2021. CXR and CTA showed diffuse lung disease Continue dexamethasone and remdesivir #9 today. Monitor LFTs Supplemental O2 as above Supportive care to include bronchodilators, expectorants, incentive spirometry Continue isolation precautions Patient has not been vaccinated for COVID-19 (3) Diabetes type 2, controlled: Qualifiers: Diabetes mellitus exterminator helper termite insulin use: without group home use Diabetes mellitus complication status: without complication Qualified Code(s): E11.9 - Type 2 diabetes mellitus without complications Code(s): E11.9 - Type 2 diabetes mellitus without complications Status: Acute Assessment and Plan: Well controlled. A1c is 6.1 Blood sugars have been running high while on steroids, therefore long acting insulin and scheduled mealtime insulin added Improved with fasting glucose 126 today Continue Lantus 15 units qHS Novolog 6 units TID with meals Continue Accu-Cheks, sliding scale insulin, hypoglycemic protocol Continue home metformin 1000 mg b.i.d. Monitor glucose trends and adjust insulin regimen as needed (4) Elevated LFTs: Code(s): R79.89 - Other specified abnormal findings of blood chemistry Status: Acute Assessment and Plan: Resolved. Likely secondary to acute viral illness Statins initially were placed on hold Will resume statin on discharge (5) Afib: Code(s): I48.91 - Unspecified atrial fibrillation Status: Acute Assessment and Plan: EKG on presentation showed atrial fibrillation. New onset felt to be likely related to COVID pneumonia Seen in consultation by Cardiology Started on metoprolol succinate 25 mg daily, subsequently discontinued secondary to bradycardia Continue Xarelto 20 mg daily; priced per care coordination and is affordable Rate remains controlled Cardiology to follow intermittently. He will need outpatient follow-up (6) Hyponatremia: Code(s): E87.1 - Hypo-osmolality and hyponatremia Status: Acute Assessment and Plan: Improved. Sodium 132 today Fluid restriction has been discontinued Continue to monitor sodium levels daily Subjective Date/time seen: 04/05/21 14:36 Interval history: Date of admission: 04/05/2021 Larry Condon is a 71-year-old male with a history of hypertension, type 2 diabetes mellitus, diastolic dysfunction, hyperlipidemia who is seen in follow-up for COVID-19 pneumonia. Is feeling fairly well today. He endorses cough productive of white sputum. Shortness of breah seems to have resolved. He is ambulating without difficulty. Denies nausea, vomiting, fever, or chills. Appetite has been good. Denies palpitations. No chest pain. He has no additional complaints. Review of Systems Review of Systems: All systems reviewed & are unremarkable except as noted in HPI and below Exam Narrative: General: Well-nourished, well-appearing 71 year-old male, sitting in a chair, comfortable, NARD Neuro: awake, alert and oriented x4, answers all questions appropriately, speech clear, no focal neuro deficits noted HEENMT: normocephalic, atraumatic, EOMI, sclerae anicteric, moist oral mucosa Respiratory: clear to auscultation b
[2021-04-05 16:08] LABS: Glucose Point of Care 313 mg/dl (65-105)
[2021-04-05] MEDS: INSULIN ASPART (*BKC) 100 UNITS/ML SUB-Q (17:34)
[2021-04-05] MEDS: RIVAROXABAN 20 MG TABLET PO (17:34)
[2021-04-05] MEDS: REMDESIVIR 100 MG/NS 250 ML 100 MG/250 ML BAG 250 MG IVPB (20:34)
[2021-04-05] MEDS: INSULIN GLARGINE (*BKC) 100 UNITS/ML 15 UNITS SUB-Q (20:34)
[2021-04-05 22:15] LABS: Glucose Point of Care 205 mg/dl (65-105)
[2021-04-06] VITALS (9 sets, daily range): BP systolic 121–151; BP diastolic 52–71; PULSE 61–88; RESP 18; TEMP 35.8–36.8; O2SAT 92–94
[2021-04-06] MEDS: ALBUTEROL SULFATE (*SP) AEROSOL 1 PUFF 2 PUFF INHALATION ×4 (02:30→19:18)
[2021-04-06] MEDS: SALINE 0.65% NAS SOLN 44 ML BTL 1 SPRAY NASAL ×3 (05:54→17:05)
[2021-04-06 06:58] LABS: Mean Corpuscular HGB Conc 34.1 g/dl (32-36); Mean Corpuscular Hemoglobin 31.7 pg (26-34); Mean Platelet Volume 9.5 fl (7.4-10.4); Platelet Count Result 441 k/mm3 (150-375); Red Blood Count 4.41 M/mm3 (4.6-6.20); Red Cell Distribution Width 13.1 % (11.5-14.5); White Blood Count 8.4 K/mm3 (4.5-10.0)
[2021-04-06 07:16] LABS: INR 1.7; Prothrombin Time 19.5 Seconds (11.1-14.7)
[2021-04-06 07:18] LABS: Alanine Aminotransferase 22 U/L (4-50); Albumin Level 2.9 g/dL (3.5-5.1); Alkaline Phosphatase 42 U/L (38-126); Anion Gap 5 mmol/L (8-16); Aspartate Amino Transferase 26 U/L (17-59); Bilirubin,Total 0.6 mg/dL (0.2-1.3); Blood Urea Nitrogen 27 mg/dL (9-20); Calcium 8.4 mg/dL (8.4-10.2); Carbon Dioxide 27 mmol/L (22-30); Chloride 101 mmol/L (98-107); Estimated CRCL calculation 76 ml/min; Estimated Glomerular Filt Rate > 60; Glucose 152 mg/dL (65-110); Potassium 4.2 mmol/L (3.4-5.0); Sodium 133 mmol/L (137-145)
[2021-04-06 07:37] LABS: Glucose Point of Care 246 mg/dl (65-105)
[2021-04-06] MEDS: hydroCHLOROthiazide 12.5 MG CAPSULE PO (10:05)
[2021-04-06] MEDS: amLODIPine BESYLATE 5 MG TABLET 10 MG PO (10:05)
[2021-04-06] MEDS: metFORMIN HCL 500 MG TABLET 1000 MG PO ×2 (10:05→17:01)
[2021-04-06] MEDS: FOLIC ACID 1 MG TABLET PO (10:06)
[2021-04-06] MEDS: allopurinoL 150 MG TABLET PO (10:06)
[2021-04-06] MEDS: OMEGA 3 POLYUNSAT FATTY ACIDS 1 GM CAP PO ×2 (10:06→17:01)
[2021-04-06] MEDS: lisinopriL 20 MG TABLET 40 MG PO (10:06)
[2021-04-06] MEDS: INSULIN ASPART (*BKC) 100 UNITS/ML SUB-Q (10:07)
[2021-04-06] MEDS: INSULIN ASPART (*BKC) 100 UNITS/ML 6 UNITS SUB-Q ×3 (10:07→17:01)
[2021-04-06 11:42] LABS: Glucose Point of Care 183 mg/dl (65-105)
--- NOTE | 2021-04-06 13:16 | P.PNIM_ITS ---
Progress Note: A&P Assessment and Plan (1) Acute respiratory failure with hypoxia: Code(s): J96.01 - Acute respiratory failure with hypoxia Status: Acute Assessment and Plan: Presented with mild acute hypoxic respiratory failure in the setting of COVID pneumonia in a unvaccinated patient. * CTA showed multifocal lung disease consistent with COVID-19 pneumonia. No evidence of PE * He is requiring 2.5 L supplemental O2 per nasal cannula * Continue supplemental O2 as needed with goal saturation 90% or above (2) Pneumonia due to 2019-nCoV: Code(s): U07.1 - COVID-19; J12.82 - Pneumonia due to coronavirus disease 2018 Status: Acute Assessment and Plan: Positive COVID test on 03/28/2021. CXR and CTA showed diffuse lung disease * Continue dexamethasone and remdesivir. Will receive last dose #10 tonight. LFTs normal * Supplemental O2 as above * Supportive care to include bronchodilators, expectorants, incentive spirometry * Continue isolation precautions * Patient has not been vaccinated for COVID-19 (3) Diabetes type 2, controlled: Qualifiers: Diabetes mellitus complication status: without complication Diabetes mellitus terminal superintendent insulin use: without terminal superintendent use Qualified Code(s): E11.9 - Type 2 diabetes mellitus without complications Code(s): E11.9 - Type 2 diabetes mellitus without complications Status: Acute Assessment and Plan: Well controlled. A1c is 6.1 * Blood sugars have been running high while on steroids, therefore long acting insulin and scheduled mealtime insulin added * Improved with fasting glucose 152 today * Continue Lantus 15 units qHS * Novolog 6 units TID with meals * Continue Accu-Cheks, sliding scale insulin, hypoglycemic protocol * Continue home metformin 1000 mg b.i.d. * Monitor glucose trends and adjust insulin regimen as needed (4) Elevated LFTs: Code(s): R79.89 - Other specified abnormal findings of blood chemistry Status: Acute Assessment and Plan: Resolved. Likely secondary to acute viral illness * Statins initially were placed on hold * Will resume statin on discharge (5) Afib: Code(s): I48.91 - Unspecified atrial fibrillation Status: Acute Assessment and Plan: EKG on presentation showed atrial fibrillation. New onset felt to be likely related to COVID pneumonia * Seen in consultation by Cardiology * Started on metoprolol succinate 25 mg daily, subsequently discontinued secondary to bradycardia * Continue Xarelto 20 mg daily; priced per care coordination and is affordable * Rate remains controlled * Cardiology to follow intermittently. He will need outpatient follow-up (6) Hyponatremia: Code(s): E87.1 - Hypo-osmolality and hyponatremia Status: Acute Assessment and Plan: Improved. Sodium 133 today * Fluid restriction has been discontinued * Continue to monitor sodium levels daily Subjective Date/time seen: 04/06/21 13:16 Interval history: Date of admission: 04/06/2021 Larry Condon is a 71-year-old male with a history of hypertension, type 2 diabetes mellitus, diastolic dysfunction, hyperlipidemia who is seen in follow- up for COVID-19 pneumonia. He feels overall improved. He does continue to endorse fatigue. His shortness of breath has improved. He does have dry cough. Feels he has phlegm and is so he wants to get up but he is not able to. He denies nausea or vomiting. No dizziness, lightheadedness, weakness. He has been able to get up and get around the room without diffi
--- NOTE | 2021-04-06 13:16 | PM.IMPN ---
Progress Note: A&P Assessment and Plan (1) Acute respiratory failure with hypoxia: Code(s): J96.01 - Acute respiratory failure with hypoxia Status: Acute Assessment and Plan: Presented with mild acute hypoxic respiratory failure in the setting of COVID pneumonia in a unvaccinated patient. CTA showed multifocal lung disease consistent with COVID-19 pneumonia. No evidence of PE He is requiring 2.5 L supplemental O2 per nasal cannula Continue supplemental O2 as needed with goal saturation 90% or above (2) Pneumonia due to 2019-nCoV: Code(s): U07.1 - COVID-19; J12.82 - Pneumonia due to coronavirus disease 2018 Status: Acute Assessment and Plan: Positive COVID test on 03/28/2021. CXR and CTA showed diffuse lung disease Continue dexamethasone and remdesivir. Will receive last dose #10 tonight. LFTs normal Supplemental O2 as above Supportive care to include bronchodilators, expectorants, incentive spirometry Continue isolation precautions Patient has not been vaccinated for COVID-19 (3) Diabetes type 2, controlled: Qualifiers: Diabetes mellitus complication status: without complication Diabetes mellitus watermelon inspector insulin use: without assisted use Qualified Code(s): E11.9 - Type 2 diabetes mellitus without complications Code(s): E11.9 - Type 2 diabetes mellitus without complications Status: Acute Assessment and Plan: Well controlled. A1c is 6.1 Blood sugars have been running high while on steroids, therefore long acting insulin and scheduled mealtime insulin added Improved with fasting glucose 152 today Continue Lantus 15 units qHS Novolog 6 units TID with meals Continue Accu-Cheks, sliding scale insulin, hypoglycemic protocol Continue home metformin 1000 mg b.i.d. Monitor glucose trends and adjust insulin regimen as needed (4) Elevated LFTs: Code(s): R79.89 - Other specified abnormal findings of blood chemistry Status: Acute Assessment and Plan: Resolved. Likely secondary to acute viral illness Statins initially were placed on hold Will resume statin on discharge (5) Afib: Code(s): I48.91 - Unspecified atrial fibrillation Status: Acute Assessment and Plan: EKG on presentation showed atrial fibrillation. New onset felt to be likely related to COVID pneumonia Seen in consultation by Cardiology Started on metoprolol succinate 25 mg daily, subsequently discontinued secondary to bradycardia Continue Xarelto 20 mg daily; priced per care coordination and is affordable Rate remains controlled Cardiology to follow intermittently. He will need outpatient follow-up (6) Hyponatremia: Code(s): E87.1 - Hypo-osmolality and hyponatremia Status: Acute Assessment and Plan: Improved. Sodium 133 today Fluid restriction has been discontinued Continue to monitor sodium levels daily Subjective Date/time seen: 04/06/21 13:16 Interval history: Date of admission: 04/06/2021 Larry Condon is a 71-year-old male with a history of hypertension, type 2 diabetes mellitus, diastolic dysfunction, hyperlipidemia who is seen in follow-up for COVID-19 pneumonia. He feels overall improved. He does continue to endorse fatigue. His shortness of breath has improved. He does have dry cough. Feels he has phlegm and is so he wants to get up but he is not able to. He denies nausea or vomiting. No dizziness, lightheadedness, weakness. He has been able to get up and get around the room without difficulty. Denies chest pain. His appetite is good. Review of Systems Review of Systems: All systems reviewed & are unremarkable except as noted in HPI and below Exam Narrative: General: Well-nourished, well-appearing 71 year-old male, sitting in a chair, comfortable, NARD Neuro: awake, alert and oriented x4, answers all questions appropriately, speech clear HEENMT: normocephalic, atraumat
[2021-04-06 16:29] LABS: Glucose Point of Care 168 mg/dl (65-105)
[2021-04-06] MEDS: RIVAROXABAN 20 MG TABLET PO (17:01)
[2021-04-06] MEDS: REMDESIVIR 100 MG/NS 250 ML 100 MG/250 ML BAG 250 MG IVPB (20:19)
[2021-04-07] VITALS (10 sets, daily range): BP systolic 115–129; BP diastolic 49–67; PULSE 66–121; RESP 16–20; TEMP 36.2–36.6; O2SAT 88–95
[2021-04-07] MEDS: SALINE 0.65% NAS SOLN 44 ML BTL 1 SPRAY NASAL ×3 (00:41→12:17)
[2021-04-07] MEDS: ALBUTEROL SULFATE (*SP) AEROSOL 1 PUFF 2 PUFF INHALATION ×3 (01:56→13:51)
[2021-04-07] MEDS: INSULIN GLARGINE (*BKC) 100 UNITS/ML 15 UNITS SUB-Q (06:23)
[2021-04-07 08:15] LABS: Glucose Point of Care 136 mg/dl (65-105)
[2021-04-07] MEDS: hydroCHLOROthiazide 12.5 MG CAPSULE PO (08:19)
[2021-04-07] MEDS: allopurinoL 150 MG TABLET PO (08:19)
[2021-04-07] MEDS: metFORMIN HCL 500 MG TABLET 1000 MG PO (08:19)
[2021-04-07] MEDS: FOLIC ACID 1 MG TABLET PO (08:19)
[2021-04-07] MEDS: INSULIN ASPART (*BKC) 100 UNITS/ML 6 UNITS SUB-Q ×2 (08:19→12:17)
[2021-04-07] MEDS: amLODIPine BESYLATE 5 MG TABLET 10 MG PO (08:19)
[2021-04-07] MEDS: lisinopriL 20 MG TABLET 40 MG PO (08:19)
[2021-04-07] MEDS: OMEGA 3 POLYUNSAT FATTY ACIDS 1 GM CAP PO (08:19)
--- NOTE | 2021-04-07 11:22 | PC.NURSE ---
pt to discharge home, pending home o2 evaluation, respiratory therapy informed for home o2 evaluation needed this shift.
[2021-04-07 11:49] LABS: Glucose Point of Care 276 mg/dl (65-105)
[2021-04-07] MEDS: INSULIN ASPART (*BKC) 100 UNITS/ML SUB-Q (12:16)
--- NOTE | 2021-04-07 13:23 | P.DS_ITS ---
DS: Admitting Diagnosis Discharge Date 04/07/2021 Admitting Diagnosis COVID-19 DS: Discharge Diagnosis Discharge Diagnosis (1) Acute respiratory failure with hypoxia: Code(s): J96.01 - Acute respiratory failure with hypoxia Status: Acute Assessment and Plan: Presented with mild acute hypoxic respiratory failure in the setting of COVID pneumonia in a unvaccinated patient. * CTA showed multifocal lung disease consistent with COVID-19 pneumonia. No evidence of PE * He required up to 4 L supplemental O2 per nasal cannula * O2 was able to be slowly weaned and patient had symptomatic improvement * Home O2 eval performed on 04/07/2021 and patient had no ongoing oxygen requirements (2) Pneumonia due to 2019-nCoV: Code(s): U07.1 - COVID-19; J12.82 - Pneumonia due to coronavirus disease 2018 Status: Acute Assessment and Plan: Positive COVID test on 03/28/2021. CXR and CTA showed diffuse lung disease * Completed 10 days of dexamethasone and remdesivir. LFTs monitor during therapy * Supplemental O2 provided and was able to be weaned as above * Supportive care including bronchodilators, expectorants, incentive spirometry * Patient has not been vaccinated for COVID-19. He will need to follow PCP to schedule vaccination (3) Diabetes type 2, controlled: Qualifiers: Diabetes mellitus complication status: without complication Diabetes mellitus snf insulin use: without snf use Qualified Code(s): E11.9 - Type 2 diabetes mellitus without complications Code(s): E11.9 - Type 2 diabetes mellitus without complications Status: Acute Assessment and Plan: Well controlled. A1c is 6.1 * Blood sugars were running high while on steroids, therefore long acting insulin and scheduled mealtime insulin added hospitalization * Blood sugars improved with initiation insulin regimen * As steroids have been discontinued, expect blood sugars to return back to his baseline. No ongoing insulin required at this time * Continue home metformin 1000 mg b.i.d. * Monitor blood sugars closely at home and follow-up with PCP (4) Elevated LFTs: Code(s): R79.89 - Other specified abnormal findings of blood chemistry Status: Acute Assessment and Plan: Resolved. Likely secondary to acute viral illness * Statins initially were placed on hold but resumed on discharge with normalization of LFTs (5) Afib: Code(s): I48.91 - Unspecified atrial fibrillation Status: Acute Assessment and Plan: EKG on presentation showed atrial fibrillation. New onset felt to be likely related to COVID pneumonia * Seen in consultation by Cardiology * Started on metoprolol succinate 25 mg daily, subsequently discontinued secondary to bradycardia * He was started on Xarelto 20 mg daily which will be continued; priced per care coordination and is affordable. Discussed risks versus benefits of anticoagulation and patient agreeable to proceed * Rate controlled throughout remainder of hospitalization * He will follow-up with cardiology as an outpatient (6) Hyponatremia: Code(s): E87.1 - Hypo-osmolality and hyponatremia Status: Acute Assessment and Plan: Improved. * Sodium ranged 132-135 DS: Summary Hospital Course Hospital Course: Date of admission: 03/28/2021 Date of discharge: 04/07/2021 Larry Condon is a 71-year-old male with a history of hypertension, type 2 diabetes mellitus, diastolic dysfunction, hyperlipidemia who presented to the emergen
--- NOTE | 2021-04-07 13:23 | PM.DS ---
DS: Admitting Diagnosis Discharge Date 04/07/2021 Admitting Diagnosis COVID-19 DS: Discharge Diagnosis Discharge Diagnosis (1) Acute respiratory failure with hypoxia: Code(s): J96.01 - Acute respiratory failure with hypoxia Status: Acute Assessment and Plan: Presented with mild acute hypoxic respiratory failure in the setting of COVID pneumonia in a unvaccinated patient. CTA showed multifocal lung disease consistent with COVID-19 pneumonia. No evidence of PE He required up to 4 L supplemental O2 per nasal cannula O2 was able to be slowly weaned and patient had symptomatic improvement Home O2 eval performed on 04/07/2021 and patient had no ongoing oxygen requirements (2) Pneumonia due to 2019-nCoV: Code(s): U07.1 - COVID-19; J12.82 - Pneumonia due to coronavirus disease 2018 Status: Acute Assessment and Plan: Positive COVID test on 03/28/2021. CXR and CTA showed diffuse lung disease Completed 10 days of dexamethasone and remdesivir. LFTs monitor during therapy Supplemental O2 provided and was able to be weaned as above Supportive care including bronchodilators, expectorants, incentive spirometry Patient has not been vaccinated for COVID-19. He will need to follow PCP to schedule vaccination (3) Diabetes type 2, controlled: Qualifiers: Diabetes mellitus complication status: without complication Diabetes mellitus computer terminal operator insulin use: without computer terminal operator use Qualified Code(s): E11.9 - Type 2 diabetes mellitus without complications Code(s): E11.9 - Type 2 diabetes mellitus without complications Status: Acute Assessment and Plan: Well controlled. A1c is 6.1 Blood sugars were running high while on steroids, therefore long acting insulin and scheduled mealtime insulin added hospitalization Blood sugars improved with initiation insulin regimen As steroids have been discontinued, expect blood sugars to return back to his baseline. No ongoing insulin required at this time Continue home metformin 1000 mg b.i.d. Monitor blood sugars closely at home and follow-up with PCP (4) Elevated LFTs: Code(s): R79.89 - Other specified abnormal findings of blood chemistry Status: Acute Assessment and Plan: Resolved. Likely secondary to acute viral illness Statins initially were placed on hold but resumed on discharge with normalization of LFTs (5) Afib: Code(s): I48.91 - Unspecified atrial fibrillation Status: Acute Assessment and Plan: EKG on presentation showed atrial fibrillation. New onset felt to be likely related to COVID pneumonia Seen in consultation by Cardiology Started on metoprolol succinate 25 mg daily, subsequently discontinued secondary to bradycardia He was started on Xarelto 20 mg daily which will be continued; priced per care coordination and is affordable. Discussed risks versus benefits of anticoagulation and patient agreeable to proceed Rate controlled throughout remainder of hospitalization He will follow-up with cardiology as an outpatient (6) Hyponatremia: Code(s): E87.1 - Hypo-osmolality and hyponatremia Status: Acute Assessment and Plan: Improved. Sodium ranged 132-135 DS: Summary Hospital Course Hospital Course: Date of admission: 03/28/2021 Date of discharge: 04/07/2021 Larry Condon is a 71-year-old male with a history of hypertension, type 2 diabetes mellitus, diastolic dysfunction, hyperlipidemia who presented to the emergency department with complaints of increased weakness and fatigue. He had been started on p.o. antibiotics by his PCP for presumed pneumonia without improvement. He was admitted to the hospitalist service for further evaluation management. Please see above for further details. He was found to have COVID-19 and was treated with dexamethasone and remdesivir. He had overall improvement and his oxygen requirements slightly decreased
--- NOTE | 2021-04-07 14:03 | PC.NURSE ---
Daughter to picker tender pt soon, pt discharging to home.
== END 2021-04-07 14:27 | disposition home or self-care (01) | DRG 177 ==
LOC: ANHED 19:01 → ANH3MEDSUR 20:43
PROVIDERS: Nurse Practitioner; Physician Assistant; Admitting Provider Internal Medicine; Emergency Provider Emergency Medicine; PCP Internal Medicine; Visit Provider Family Medicine
DX: U07.1 COVID-19 (principal); J12.82 Pneumonia due to coronavirus disease 2019; J96.01 Acute respiratory failure with hypoxia; E87.1 Hypo-osmolality and hyponatremia; I48.91 Unspecified atrial fibrillation; E78.5 Hyperlipidemia, unspecified; E55.9 Vitamin D deficiency, unspecified; E11.9 Type 2 diabetes mellitus without complications; I11.9 Hypertensive heart disease without heart failure; I34.1 Nonrheumatic mitral (valve) prolapse; R79.89 Other specified abnormal findings of blood chemistry; Z79.899 Other long term (current) drug therapy; Z79.82 Long term (current) use of aspirin; Z79.84 Long term (current) use of oral hypoglycemic drugs; Z28.21 Immunization not carried out because of patient refusal
CPT/HCPCS: 36415; 71045; 71046; 71275; 80053; 81001; 82565; 82728; 82948; 83036; 83615; 83735; 83880; 83930; 83935; 84300; 84439; 84443; 84460; 84480; 85025; 85027; 85055; 85380; 85610; 85730; 86140; 87804; 93005; 93306; 94618; 94640; 96365; 96366; 96372; 96374; 96375; 97116; 97161; 97165; 99285; A9270; C9803; G0378; J1100; J1650; J1815; Q9967; U0003; U0005

== ENCOUNTER 2021-04-15 07:38 | Inpatient (IN) | payer BC, MEDICARE, SELFPAY ==
[2021-04-15] VITALS (20 sets, daily range): BP systolic 110–144; BP diastolic 55–85; PULSE 89–121; RESP 18–37; TEMP 35.8–36.6; O2SAT 87–96; BMI 23.6
--- NOTE | ~2021-04-15 | XR_ITS ---
XR chest 1V portable 04/15/2021 08:13 Indication: Shortness of breath. Procedure: AP portable chest Comparison: 03/28/2021 Findings: Interval development of extensive bilateral airspace disease, left greater than right, cons istent with pneumonia. No pneumothorax. No significant pleural effusion. No acute osseous abnormality . Impression: 1: Interval development of extensive bilateral airspace disease, compatible with pneumonia. Reviewed, dictated and finalized at location A. ARD/STEWARDESS BATH Impression: 1: Interval development of extensive bilateral airspace disease, compatible wit h pneumonia.
--- NOTE | ~2021-04-15 | XR_ITS ---
XR chest 1V portable DATE: 04/17/2021 00:27 INDICATION: Increased oxygen need TECHNIQUE: Portable AP chest on 04/17/2021 at 0017 hours COMPARISON: April 15, 2021 CT pulmonary scan April 15, 2021 portable AP chest FINDINGS: Severe diffuse bilateral pulmonary infiltrates, left greater than right, increased on the r ight particularly since April 15, 2021. No apparent significant pleural effusion. No pneumothorax. Cardiomegaly. IMPRESSION: Extensive bilateral pulmonary infiltrates, involving left lung diffusely, substantially i ncreased on the right since 04/15/2021 Reviewed, dictated and finalized at location A. VE SEPARATOR IMPRESSION: Extensive bilateral pulmonary infiltrates, involving left lung diff usely, substantially increased on the right since 04/15/2021
--- NOTE | ~2021-04-15 | CT_ITS ---
EXAMINATION: CTA chest PE protocol EXAM DATE: 04/15/2021 15:08 INDICATION: hypoxia, SOB TECHNIQUE: Spiral CTA of the chest (pulmonary arteries) was performed with 100 cc Omnipaque 350 intr avenous contrast injection. Images were acquired during the pulmonary arterial phase. Coronal maxi mum intensity projection 3D-reconstructions were created by the technologist on dedicated workstation . Axial, coronal and sagittal reformatted images were reviewed. The dose-length product (DLP) for t his examination was 365.55 mGy-cm. The exposure was tailored according to patient size (auto mA exp osure control), and iterative reconstruction (ASIR) was used as additional dose reduction technique. Comparison is made to prior examination from 03/29/2021. FINDINGS: Some limitations to basilar segmental evaluation due to respiratory motion but no pulmonary emboli suspected. There is cardiomegaly. Small left pleural effusion. Extensive left-sided and moder ate right-sided pneumonia with significant progression compared to prior study. Reactive mediastinal lymphadenopathy. No pneumothorax. Small gastroesophageal hiatal hernia. There are no osteoblastic or osteolytic lesions identified. IMPRESSION: 1. Extensive left, moderate right-sided pneumonia, interval progression. 2. Cardiomegaly, small left pleural effusion. 3. No pulmonary emboli suspected. Reviewed, dictated and finalized at location B. SPEED PRINTER OPERATOR
--- NOTE | 2021-04-15 07:45 | ED.GENADULT ---
HPI - General Adult General Chief complaint: Shortness of Breath/Dyspnea Stated complaint: dyspnea Time Seen by Provider: 04/15/21 07:45 Source: patient and RN notes reviewed Limitations: no limitations History of Present Illness HPI narrative: Patient is 71 years old white male presented to the ED complaining of increased shortness of breath started on April 10, 3 days after discharge from our hospital with a diagnosis of acute hypoxic respiratory failure secondary to Covid pneumonia. Patient was discharged on no oxygen. Status post 10 days of dexamethasone and remdesivir. Patient is not vaccinated for COVID-19. Patient is telling me that he did not feel well and was still having shortness of breath at the time of discharge from our hospital on April 07. Patient lives alone. History of diabetes, elevated liver enzymes, paroxysmal A. fib and DNR Related Data Home Medications Medication Instructions Recorded Confirmed mecobalamin (vitamin B12) 1,000 1,000 mcg SUBLINGUAL DAILY 10/16/20 03/28/21 mcg disintegrating tablet,sublingual amlodipine-benazepril 1 cap PO DAILY 03/28/21 03/28/21 atorvastatin 40 mg PO DAILY 03/28/21 03/28/21 calcium carbonate-vitamin D3 600 tablet PO DAILY 03/28/21 03/28/21 folic acid 1 mg PO DAILY 03/28/21 03/28/21 hydrochlorothiazide 12.5 mg PO DAILY 03/28/21 03/28/21 metformin 1,000 mg PO BID 03/28/21 03/28/21 omega 5-jul-cog-fish oil [Fish Oil] 1,200 cap PO BID 03/28/21 03/28/21 Allergies Allergy/AdvReac Type Severity Reaction Status Date / Time No Known Allergies Allergy Verified 03/26/21 11:30 Review of Systems Review of Systems: CONSTITUTIONAL: Denies fever, chills, or sweats. EYES: Denies visual changes, redness, or discharge. ENT: Denies rhinorrhea, congestion, sore throat, or otalgia. CARDIOVASCULAR: Denies chest pain, palpitations, or edema. RESPIRATORY: Shortness of breath GASTROINTESTINAL: Denies abdominal pain, nausea, vomiting, or diarrhea. GENITOURINARY: Denies dysuria or hematuria. SKIN: Denies rash or itching. MUSCULOSKELETAL: Denies back pain, joint pain, or myalgia. NEUROLOGIC: Denies headache, numbness, or weakness. PSYCHIATRIC: Denies anxiety or depression. PMFSH Past Medical History Medical History Benign essential hypertension Diabetes type 2, controlled Elevated homocysteine Gout Grade II diastolic dysfunction Heart murmur Hyperlipidemia Inguinal hernia Mitral valve regurgitation Nummular eczema On petroleum terminal plant operator drug therapy Vitamin D deficiency Surgical History Surgical History No pertinent past surgical history Family History Family History Mother Family history of thyroid disease Family history of coronary artery disease Sibling Family history of gout Family history of elevated blood lipids Cerebrovascular accident Father Family history of type 2 diabetes mellitus Family history of diabetes mellitus in first degree relative Social History Social History Social History: The patient lives alone. He has a couple of daughters. He works selling insurance for crops. He is a lifelong nonsmoker. He drinks alcohol occasionally in moderation. He denies illicit substance use. Smoking status: Never smoker Alcohol intake: never Substance use: never Substance use type: does not use Spiritual care concerns: No Exam Narrative: General appearance: Well-developed, well-nourished Skin: Normal color Head: Normocephalic, nontraumatic Eyes: Clear conjunctiva ENT: Oropharynx normal, ears normal, nose normal Neck: Supple, nontender Chest and respiratory: Airway patent, no respiratory distress, no accessory muscle use, diminishment of air entry bilaterally Heart: Tachycardia, irregular irregularity Abdomen: Soft, nontender, no or
--- NOTE | 2021-04-15 07:55 | ECG_ITS ---
Measurements Intervals [place] Rate: 118 P: IA: 0 QRS: 4 QRSD: 93 T: 0 QT: 331 QTc: 464 Interpretive Statements ATRIAL FIBRILLATION WITH RAPID VENTRICULAR RESPONSE FREQUENT VENTRICULAR PREMATURE COMPLEXES DELAYED PRECORDIAL R/S TRANSITION BORDERLINE T WAVE ABNORMALITY- INFERIOR LEADS BASELINE ARTIFACT- V2 ABNORMAL ECG Electronically Signed On 04-15-2021 8:13:54 MICA PASTER by Jacobo Mariee D.O.
[2021-04-15] MEDS: ALBUTEROL SULFATE NEB 2.5 MG/0.5 ML INH 5 MG INHALATION (08:06)
[2021-04-15 08:20] LABS: Basophils Percent Auto 0.1 % (0.2-1.2); Eosinophils Percent Auto 0.2 % (0-4.4); Hematocrit 40.4 % (42.0-52.0); Hemoglobin 13.7 g/dL (14.0-18.0); Immature Granulocyte Absolute 0.09 K/mm3 (0.00-0.031); Immature Granulocyte Percent A 0.7 % (0-0.5); Lymphocytes Absolute Auto 0.62 K/mm3 (0.9-3.2); Lymphocytes Percent Auto 4.6 % (18.3-44.2); Mean Corpuscular HGB Conc 33.9 g/dl (32-36); Mean Corpuscular Hemoglobin 31.3 pg (26-34); Mean Corpuscular Volume 92.2 fl (80-100); Mean Platelet Volume 9.3 fl (7.4-10.4); Monocytes Absolute Auto 0.6 K/mm3 (0.1-0.6); Monocytes Percent Auto 4.5 % (2.6-8.5); Neutrophils Absolute Auto 12.1 K/mm3 (1.3-6.7); Neutrophils Percent Auto 89.9 % (45.5-73.1); Platelet Count Result 285 k/mm3 (150-375); Red Blood Count 4.38 M/mm3 (4.6-6.20); Red Cell Distribution Width 13.3 % (11.5-14.5); White Blood Count 13.5 K/mm3 (4.5-10.0)
[2021-04-15 08:21] LABS: Alveolar/Arterial O2 Gradient 175.5 mmHg; Base Excess ABG 3.1 mEq/l (+/-2.0); Fractional Inspired Oxygen 36 %; HCO3 ABG 24.8 mEq/l (22.0-26.0); Oxygen Content ABG 14.7 %vol (16.0-22.0); Oxygen Saturation ABG 88.8 % (95.0-100.0); PCO2 ABG 29.1 mmHg (35.0-45.0); PO2 FiO2 Ratio Arterial Blood 1.32 %; Total Hemoglobin 12.4 g/dL (12.0-18.0)
[2021-04-15 08:22] LABS: PO2 ABG 47.4 mmHg (80.0-100.0); pH ABG 7.548 (7.350-7.450)
[2021-04-15 08:23] LABS: Device NASAL CANNULA; Modified Allen's Test Pass; Oxyhemoglobin 84.2 % THb (90.0-100.0); Site Drawn RIGHT RADIAL
[2021-04-15 08:29] LABS: Prothrombin Time 21.7 Seconds (11.1-14.7)
[2021-04-15 08:30] LABS: Alanine Aminotransferase 93 U/L (4-50); Albumin Level 3.5 g/dL (3.5-5.1); Alkaline Phosphatase 86 U/L (38-126); Anion Gap 10 mmol/L (8-16); Aspartate Amino Transferase 69 U/L (17-59); Bilirubin,Total 0.9 mg/dL (0.2-1.3); Blood Urea Nitrogen 15 mg/dL (9-20); Calcium 8.4 mg/dL (8.4-10.2); Carbon Dioxide 26 mmol/L (22-30); Chloride 96 mmol/L (98-107); Estimated CRCL calculation 76 ml/min; Estimated Glomerular Filt Rate > 60; Glucose 213 mg/dL (65-110); Partial Thromboplastin Time 44.6 SECONDS (22.3-36.8); Potassium 3.7 mmol/L (3.4-5.0); Sodium 132 mmol/L (137-145)
[2021-04-15 08:32] LABS: D Dimer 2.48 ug/mL (<0.48)
[2021-04-15 08:34] LABS: Magnesium 1.8 mg/dL (1.6-2.3)
[2021-04-15] MEDS: dilTIAZem HCl INJ 25 MG/5 ML VIAL 10 MG IV PUSH (08:38)
[2021-04-15 08:41] LABS: Troponin I 0.014 ng/mL (0.000-0.034)
[2021-04-15] MEDS: SODIUM CHLORIDE 0.9% IV 1,000 ML 75 ML IV CONT (10:29)
[2021-04-15 10:44] LABS: Glucose Point of Care 214 mg/dl (65-105)
--- NOTE | 2021-04-15 11:24 | ADMGEN ---
This patient, Larry Condon, was admitted to IMU Room 207 1115. Patient/family oriented to hospital policies and general routines including ID bracelet, bed and alarms, visiting hours, pain management, procedures, bathroom and other care routines, personal items, smoking policy, room service/diet, and visiting hours. Information on how to activate the Rapid Response Team has been discussed. Patient/Family are encouraged to report perceived risks to care and to ask questions if they do not understand what they are told or what they should do.
[2021-04-15 11:47] LABS: Glucose Point of Care 216 mg/dl (65-105)
--- NOTE | 2021-04-15 12:46 | PM.IMHP ---
H&P: HPI History of Present Illness Date/Time: 04/15/21 12:46 Chief Complaint: Shortness of breath Narrative: 71yo male with history of hypertension, hyperlipidemia, diabetes mellitus and recent hospitalization for COVID where he developed AFib who returns with increasing shortness of breath. Patient presented to the ED on March 28 for weakness and found to be hypoxic. He was hospitalized for about 10 days. He is on have acute respiratory failure secondary to COVID pneumonia. He is unvaccinated. He also developed new onset atrial fibrillation. He was started on metoprolol but this was discontinued secondary bradycardia. He was started on Xarelto for stroke prophylaxis. He had a home O2 evaluation and did not require oxygen added at the time of discharge. He was discharged on 04/07/2021. Patient has not been hospitalized elsewhere. At home he was doing well up until about 5 days prior to admission when he developed shortness of breath worse with exertion. He denies any fever or chills. No chest pain. No anosmia, dysgeusia, odynophagia or dysphagia. He has a slight nonproductive cough. He has been having palpitations with exertion. No nausea, vomiting, diarrhea, constipation, abdominal pain, back pain, dysuria, hematuria or neurologic changes. He is lifelong nonsmoker. He has been compliant with his medications. He states he did not go home with any inhaler but albuterol HFA was listed at discharge. Patient did not contact his primary care doctor. Because of the increasing shortness of breath, patient presented to the emergency room for evaluation. In the emergency room, patient was tachypneic at 35 with a pulse of 121. He was hypoxic and supplemental oxygen was started. ABG showed 7.5 07/14/2046 on 6 L. white count was 13.5 K with an INR 2.0 and a D-dimer 2.5. AST and ALT are mildly elevated. Glucose 213. Sodium 132. Chest x-ray showed interval development of extensive bilateral airspace disease compatible with pneumonia left greater than right. Chest x-ray was reviewed personally showing much more severe findings when compared to the chest x-ray from 03/28/2021. Unfortunately no other chest x-ray was performed during his hospitalization. Blood cultures were collected. Patient was started on broad-spectrum IV antibiotics. He was admitted for further care. Review of Systems Review of Systems: All systems reviewed & are unremarkable except as noted in HPI and below PMFSH Past Medical History Medical History Benign essential hypertension Diabetes type 2, controlled Elevated homocysteine Gout Grade II diastolic dysfunction Heart murmur Hyperlipidemia Inguinal hernia Mitral valve regurgitation Nummular eczema On [facility] drug therapy Vitamin D deficiency Surgical History Surgical History No pertinent past surgical history Family History Family History Mother Family history of thyroid disease Family history of coronary artery disease Sibling Family history of gout Family history of elevated blood lipids Cerebrovascular accident Father Family history of type 2 diabetes mellitus Family history of diabetes mellitus in first degree relative Social History Social History Social History: The patient lives alone. He has a couple of daughters. He works selling insurance for crops. He is a lifelong nonsmoker. He drinks alcohol occasionally in moderation. He denies illicit substance use. Smoking status: Never smoker Second hand tobacco smoke exposure: No Alcohol intake: former Substance use: never Substance use type: does not use Spiritual care concerns: No Meds Home Medications and Allergies Home Medications Medication Instructions Recorded Confirmed Type
--- NOTE | 2021-04-15 14:59 | PM.CNPUL ---
Assessment and Plan Assessment and plan (1) Acute respiratory failure with hypoxia: Code(s): J96.01 - Acute respiratory failure with hypoxia Status: Acute Assessment and Plan: Patient is a never smoker with no occupational exposures and no respiratory limitations in his activity of daily living prior to developing COVID pneumonia on 03/28/2021. Patient was admitted to the hospital and required 4 L nasal cannula at peak illness and was treated with Remdesivir and dexamethasone for 10 days. Patient was discharged on room air. Patient returns now with worsening shortness of breath with exertion and with rest and hypoxemic respiratory failure with a chest x-ray demonstrating diffuse interstitial and alveolar infiltrates. Patient also has atrial fibrillation and is on Xarelto. My differential includes bacterial pneumonia, fluid overload, pulmonary embolism and post COVID interstitial lung disease -organizing pneumonia. I agree with broad-spectrum antibiotics at this time including vancomycin, Zosyn and Levaquin. I will send a influenza swab, urine for Legionella, pneumococcus and histoplasmosis. I will send mycoplasma IgM. patient has an elevated BNP and at this time. He will get a CT angiogram of the chest and at this time I would repeat his creatinine in the morning and I would aggressively diurese patient as tolerated by his cardiac and renal symptoms systems. I will order repeat echocardiogram to exclude a COVID cardiomyopathy. CT angiogram of the chest to exclude pulmonary embolism. If the patient has evidence of organizing pneumonia, I would prefer to give him broad-spectrum antibiotics for 48-72 hours and assess for a clinical response prior to an empiric trial of steroids for possible organizing pneumonia. Goal saturation 90-94%, escalate ro wean FIO2 as tolerated. Discussed with Dr. Hussein. Will follow with you. History of Present Illness History of Present Illness Consult date: 04/15/21 Requesting physician: Vince Hussein MD Reason for consult: hypoxemia Chief complaint: Pneumonia/ Afib with RVR/acute hypoxic respiratory Narrative: 04/15/2021: This is a new pulmonary consult for hypoxemic respiratory failure. 71-year-old man with a history of hypertension, hyperlipidemia, diabetes and recent hospitalization for COVID pneumonia and atrial fibrillation. Patient had a CT angiogram on 03/29/2021 with no pulmonary embolism, multiple bilateral patchy ground-glass infiltrates consistent with COVID pneumonia. Peak oxygen requirements were 4 L nasal cannula oxygen. Patient was treated with remdesivir and dexamethasone for 10 days and discharged home on 04/07/2021 not requiring any supplemental oxygen. Patient was started on Xarelto for his atrial fibrillation. He was given a beta arnaldo but he developed bradycardia and was sent home on no rate-controlling agent. Echo demonstrated LV EF 60-65%, mildly enlarged left atrium, moderate anterior prolapse and posterior prolapse with trivial mitral regurgitation, mild TR with an estimated PASP of 38. Today the patient tells me he did well for approximately 2 days and then slowly developed worsening dyspnea on exertion that has now progressed to rest shortness of breath. Patient states he has had some chills but denies rigors. He also states he has been feeling hot but denies any fever. Patient states that his cough has been worse over the last 5 days and he describes it as dry with no hemoptysis. He does have scant sputum production which he describes as white and red. He states his chest is sore from coughing. He does have a pulse oximeter at home and states when he left the hospital his saturations were 88-90% but he has not checked it in the last few days. Patient presented to the emergency department today with a white blood cell count of 13.5, D-dimer of 2.48, creatinine of 0.8, BNP of 13 18 30, and ABG on 6 L nasal cannula with a pH of 7.5
[2021-04-15 15:04] LABS: NT Pro B Type Natriuretic Pept 1830 pg/mL (5-100)
[2021-04-15 15:17] LABS: CRP 23.8 mg/dL (<1.0); Lactate Dehydrogenase 572 U/L (313-618)
--- NOTE | 2021-04-15 15:19 | ECHO_ITS ---
Patient Info Name: Larry Condon Age: 71 years : 1950 Gender: Male Ht: 71 in Wt: 169 lbs BSA: 1.96 m2 HR: 103 bpm BP: 121 / 63 mmHg Heart Rhythm: Atrial Fibrillation Technical Quality: Good Exam Date: 04/15/2021 4:27 PM Exam Location: [facility] Room: 207 Patient Status: Inpatient Admit Date: 04/15/2021 Staff Ordering Physician: Byron King MD Associate Director Of Biostatistics: Smita Murphy RDCS Attending Provider: Vince Hussein MD Referring Physician: Fernando LADD; Exam Type: CA echo doppler color flow Study Info Indications - exclude covid cadiomyopathy Complete two-dimensional, color flow and Doppler transthoracic echocardiogram is performed. Summary 1. Complete two-dimensional, color flow and Doppler transthoracic echocardiogram is performed. 2. Left ventricular chamber dimension is normal. 3. Left ventricular systolic function is normal, estimated at 60-65%. 4. There is mildly increased left ventricular wall thickness. 5. The left ventricular diastolic function is indeterminate. 6. Left atrial chamber dimension is severely enlarged. 7. Right atrial chamber dimension is moderately enlarged. 8. 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 9. There is mild to moderate mitral valve regurgitation. 10. There is mild tricuspid valve regurgitation. 11. Moderate pulmonary hypertension, estimated pulmonary arterial systolic pressure is 56 mmHg. 12. There is mild pulmonic regurgitation. Left Ventricle Left ventricular chamber dimension is normal. Left ventricular systolic function is normal, estimated at 60-65%. There is mildly increased left ventricular wall thickness. The left ventricular diastolic function is indeterminate. Right Ventricle Right ventricular chamber dimension is normal. Right ventricular systolic function is normal. Left Atria Left atrial chamber dimension is severely enlarged. Right Atria Right atrial chamber dimension is moderately enlarged. Atrial Septum Intact interatrial septum visualized by color flow imaging. Aortic Valve The aortic valve is trileaflet. There is mild aortic valve sclerosis. There is no aortic valve stenosis. There is trace aortic valve regurgitation. Pulmonic Valve The pulmonic valve is normal. There is no pulmonic valve stenosis. There is mild pulmonic regurgitation. 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 There is no mitral valve stenosis. There is mild to moderate mitral valve regurgitation. Tricuspid Valve The tricuspid valve leaflets are normal. There is no significant tricuspid valve stenosis. There is mild tricuspid valve regurgitation. Moderate pulmonary hypertension, estimated pulmonary arterial systolic pressure is 56 mmHg. Pericardium/Pleural The pericardium appears normal. There is no pericardial effusion. Inferior Vena Cava Normal inferior vena cava with >50% collapse upon inspiration consistent with elevated right atrial pressure, 10 mmHg. Aorta The aortic root size at the sinus of Valsalva is normal. Left Ventricular Outflow Tract Name Value Normal LVOT 2D
[2021-04-15 15:39] LABS: Hepatitis B Surface Antigen Negative (Negative)
[2021-04-15 15:45] LABS: HAV RESULT Negative (Negative); Hepatitis B Core IgM Result Negative (Negative)
[2021-04-15 15:56] LABS: Hepatitis C Virus Antibody Negative (Negative)
[2021-04-15 16:04] LABS: Folic Acid > 20.0 ng/mL (2.76->20)
[2021-04-15 16:19] LABS: Glucose Point of Care 224 mg/dl (65-105)
[2021-04-15] MEDS: PIPERACILLIN/TAZOBACTAM SOD 4.5 GM in SODIUM CHLORIDE 0.9% IV 100 ML 200 ML IVPB ×2 (17:12→23:44)
[2021-04-15] MEDS: RIVAROXABAN 20 MG TABLET PO (17:15)
[2021-04-15] MEDS: INSULIN ASPART (*BKC) 100 UNITS/ML SUB-Q (17:16)
[2021-04-15] MEDS: FUROSEMIDE INJ 40 MG/4 ML VIAL IV PUSH (18:12)
[2021-04-15 19:13] LABS: Creatinine Urine 110.7 mg/dL
[2021-04-15 19:14] LABS: Sodium Urine Random 62 meq/L
[2021-04-15 20:12] LABS: Glucose Point of Care 185 mg/dl (65-105)
[2021-04-15] MEDS: LEVALBUTEROL NEB 1.25 MG/3 ML 0.63 MG INHALATION (20:31)
[2021-04-15] MEDS: METOPROLOL TARTRATE 12.5 MG TABLET PO (21:09)
[2021-04-16] VITALS (29 sets, daily range): BP systolic 100–127; BP diastolic 46–70; PULSE 69–131; RESP 16–44; TEMP 35.6–37; O2SAT 81–97
[2021-04-16] MEDS: LEVALBUTEROL NEB 1.25 MG/3 ML 0.63 MG INHALATION ×4 (02:10→20:00)
[2021-04-16 05:22] LABS: Basophils Percent Auto 0.1 % (0.2-1.2); Eosinophils Percent Auto 0.3 % (0-4.4); Hematocrit 29.4 % (42.0-52.0); Hemoglobin 10.2 g/dL (14.0-18.0); Immature Granulocyte Absolute 0.09 K/mm3 (0.00-0.031); Immature Granulocyte Percent A 0.9 % (0-0.5); Lymphocytes Absolute Auto 0.47 K/mm3 (0.9-3.2); Lymphocytes Percent Auto 4.5 % (18.3-44.2); Mean Corpuscular HGB Conc 34.7 g/dl (32-36); Mean Corpuscular Hemoglobin 31.3 pg (26-34); Mean Corpuscular Volume 90.2 fl (80-100); Mean Platelet Volume 9.4 fl (7.4-10.4); Monocytes Absolute Auto 0.6 K/mm3 (0.1-0.6); Monocytes Percent Auto 5.6 % (2.6-8.5); Neutrophils Absolute Auto 9.3 K/mm3 (1.3-6.7); Neutrophils Percent Auto 88.6 % (45.5-73.1); Platelet Count Result 237 k/mm3 (150-375); Red Blood Count 3.26 M/mm3 (4.6-6.20); Red Cell Distribution Width 13.2 % (11.5-14.5); White Blood Count 10.4 K/mm3 (4.5-10.0)
[2021-04-16 05:56] LABS: Alanine Aminotransferase 59 U/L (4-50); Albumin Level 2.7 g/dL (3.5-5.1); Alkaline Phosphatase 59 U/L (38-126); Anion Gap 8 mmol/L (8-16); Aspartate Amino Transferase 45 U/L (17-59); Bilirubin,Total 0.6 mg/dL (0.2-1.3); Blood Urea Nitrogen 15 mg/dL (9-20); Calcium 7.4 mg/dL (8.4-10.2); Carbon Dioxide 28 mmol/L (22-30); Chloride 96 mmol/L (98-107); Estimated CRCL calculation 62 ml/min; Estimated Glomerular Filt Rate > 60; Glucose 179 mg/dL (65-110); Magnesium 1.7 mg/dL (1.6-2.3); Phosphorus 4.2 mg/dL (2.5-4.5); Potassium 3.5 mmol/L (3.4-5.0); Sodium 132 mmol/L (137-145)
[2021-04-16] MEDS: PIPERACILLIN/TAZOBACTAM SOD 4.5 GM in SODIUM CHLORIDE 0.9% IV 100 ML 200 ML IVPB ×4 (06:04→23:04)
[2021-04-16 08:43] LABS: Glucose Point of Care 197 mg/dl (65-105)
--- NOTE | 2021-04-16 09:19 | PM.PNPUL ---
Progress Note: A&P Assessment and Plan (1) Acute respiratory failure with hypoxia: Code(s): J96.01 - Acute respiratory failure with hypoxia Status: Acute Assessment and Plan: Patient is a never smoker with no occupational exposures and no respiratory limitations in his activity of daily living prior to developing COVID pneumonia on 03/28/2021. Patient was admitted to the hospital and required 4 L nasal cannula at peak illness and was treated with Remdesivir and dexamethasone for 10 days. Patient was discharged on 04/07/21 on room air. Patient returns 04/15/21 with worsening shortness of breath with exertion and with rest and hypoxemic respiratory failure with a chest x-ray demonstrating diffuse interstitial and alveolar infiltrates. Patient also has atrial fibrillation and is on Xarelto. My differential includes bacterial pneumonia, fluid overload, pulmonary embolism and post COVID interstitial lung disease -organizing pneumonia. 04/15 I agree with broad-spectrum antibiotics at this time including vancomycin, Zosyn and Levaquin. I will send a influenza swab, urine for Legionella, pneumococcus and histoplasmosis. I will send mycoplasma IgM. patient has an elevated BNP and at this time. He will get a CT angiogram of the chest and at this time I would repeat his creatinine in the morning and I would aggressively diurese patient as tolerated by his cardiac and renal symptoms systems. I will order repeat echocardiogram to exclude a COVID cardiomyopathy. CT angiogram of the chest to exclude pulmonary embolism. If the patient has evidence of organizing pneumonia, I would prefer to give him broad-spectrum antibiotics for 48-72 hours and assess for a clinical response prior to an empiric trial of steroids for possible organizing pneumonia. 10 L NC with sats 92%. Goal saturation 90-94%, escalate or wean FIO2 as tolerated. Later in the day patient had a CT angiogram of the chest which demonstrated no pulmonary emboli, diffuse patchy interstitial alveolar infiltrates worse on the left with areas of consolidation bilaterally. Lasix 40 IV was given x1. 04/16 Clinically the patient feels the same as he did yesterday. He does have some shortness of breath and dyspnea on exertion when he moves in the bed. His oxygenation is worse last night requiring 15 L nasal cannula with an overlying 15 L non-rebreather mask. This morning his saturations were 88% on those settings and we have switched him to airvo 60 L 100% FiO2 with saturations 93%. His white blood cell count is 10.4, creatinine is 1.0. blood cultures are negative. 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 I will also send serologies for connective tissue disease and or vasculitis including SHELIA screen, Anca screen, rheumatoid factor, anti CCP antibody and hypersensitivity pneumonitis panel. Continue vancomycin, Zosyn and Levaquin started 04/15 at 10:00 a.m. I discussed level of care with the patient and he confirms DNR and DNI status. BiPAP is acceptable. Will follow with you. Subjective Date/time seen: 04/16/21 09:19 Interval history: 04/15/2021: This is a new pulmonary consult for hypoxemic respiratory failure. 71-year-old man with a history of hypertension, hyperlipidemia, diabetes and recent hospitalization for COVID pneumonia and atrial fibrillation. Patient had a CT angiogram on 03/29/2021 with no pulmonary embolism, multiple bilateral patchy ground-glass infiltrates consistent with COVID pneumonia. Peak oxygen requirements were 4 L nasal cannula oxygen. Patient was treated with remdesivir and dexamethasone for 10 days and discharged home on 04/07/2021 not requiring any supplemental oxygen. Patient was started on Xarelto for his atrial fibrillation. He was given a beta arnaldo but he developed bradycardia and was sent home on no rate-controlling agent
[2021-04-16] MEDS: CYANOCOBALAMIN 1,000 MCG TABLET 1000 MCG PO (09:33)
[2021-04-16] MEDS: allopurinoL 150 MG TABLET PO (09:33)
[2021-04-16] MEDS: FOLIC ACID 1 MG TABLET PO (09:34)
[2021-04-16] MEDS: methylPREDNISolone SOD SUCC 40 MG VIAL IV PUSH ×4 (09:34→23:05)
[2021-04-16 10:50] LABS: Rheumatoid Factor 18.9 IU/ML (<12)
[2021-04-16] MEDS: METOPROLOL TARTRATE 12.5 MG TABLET PO ×2 (11:10→21:00)
[2021-04-16 12:21] LABS: Glucose Point of Care 335 mg/dl (65-105)
[2021-04-16] MEDS: INSULIN ASPART (*BKC) 100 UNITS/ML SUB-Q ×2 (13:00→17:25)
--- NOTE | 2021-04-16 13:23 | PM.IMPN ---
Progress Note: A&P Assessment and Plan (1) Acute respiratory failure with hypoxia: Code(s): J96.01 - Acute respiratory failure with hypoxia Status: Acute Assessment and Plan: Patient recently hospitalized for COVID pneumonia was discharged about a week prior to this admission. Patient developed increasing shortness of breath while at home and was noted to be hypoxic on presentation. CT of the chest shows extensive airspace disease probably bacterial pneumonia. Consider organizing pneumonia. Echo showing normal EF and moderate pulmonary hypertension and moderate MR. CHF exacerbation less likely. Increasing oxygen requirement overnight but stable now. Steroids started. Continue supportive care. Appreciate Pulmonary input. Check sputum. Stop IV fluids. (2) Pneumonia: Qualifiers: Laterality: bilateral Lung location: unspecified part of lung Pneumonia type: due to unspecified organism Qualified Code(s): J18.9 - Pneumonia, unspecified organism Code(s): J18.9 - Pneumonia, unspecified organism Status: Acute Assessment and Plan: Possible bacterial pneumonia given chest x-ray findings and the hypoxia although no fever and minimal cough. WBC 13.5K and trending down. Blood cultures no growth to date. Continue IV antibiotics. (3) Atrial fibrillation with rapid ventricular response: Code(s): I48.91 - Unspecified atrial fibrillation Status: Acute Assessment and Plan: Patient was on metoprolol but this was stopped at the last hospitalization due to bradycardia. Echo as mentioned above. It appears that he was mildly tachycardic at the time of discharge. Here, his heart rate was 121 and he was given Diltiazem IV once in the ED. we added low-dose metoprolol. We continued his Xarelto. Heart rate better controlled. Continue to follow on telemetry. (4) Hyponatremia: Code(s): E87.1 - Hypo-osmolality and hyponatremia Status: Acute Assessment and Plan: Patient with mild hyponatremia during his last hospitalization. At time of discharge, sodium was 133. Sodium here is about the same. Will continue to monitor. (5) Elevated LFTs: Code(s): R79.89 - Other specified abnormal findings of blood chemistry Status: Acute Assessment and Plan: AST and ALT mildly elevated on admission. Levels were elevated at prior hospitalization but resolved. Hepatitis panel negative. Suspect related to the AFib with RVR causing hepatic congestion. Repeat LFTs improved. Okay to resume Lipitor. (6) Diabetes type 2, controlled: Qualifiers: Diabetes mellitus retirement insulin use: without intermediate manager use Diabetes mellitus complication status: without complication Qualified Code(s): E11.9 - Type 2 diabetes mellitus without complications Code(s): E11.9 - Type 2 diabetes mellitus without complications Status: Acute Assessment and Plan: A1c was 6.1 last admission. Patient is on metformin which is on hold. Glucose poorly controlled related to steroids. Continue AccuCheks covering with sliding scale. Hypoglycemia protocol available as needed. Add Lantus. (7) Benign essential hypertension: Code(s): I10 - Essential (primary) hypertension Status: Acute Assessment and Plan: Blood pressure remains well controlled. Will continue current medications. (8) DVT prophylaxis: Code(s): Z29.9 - Encounter for prophylactic measures, unspecified Status: Acute Assessment and Plan: Xarelto. Subjective Date/time seen: 04/16/21 13:23 Interval history: 71yo male with history of hypertension, hyperlipidemia, diabetes mellitus and recent hospitalization for COVID where he developed AFib who returns with increasing shortness of breath and found to be hypoxic. Patient feels the shortness of breath is better than admission. Minimal cough. No chest pain. No nausea or vomiting. Voidi
[2021-04-16] MEDS: PANTOPRAZOLE 40 MG TABLET PO (14:22)
[2021-04-16 16:24] LABS: Glucose Point of Care 263 mg/dl (65-105)
[2021-04-16] MEDS: RIVAROXABAN 20 MG TABLET PO (17:27)
[2021-04-16 20:55] LABS: Glucose Point of Care 252 mg/dl (65-105)
[2021-04-16] MEDS: INSULIN GLARGINE (*BKC) 100 UNITS/ML 10 UNITS SUB-Q (20:59)
[2021-04-16 22:21] LABS: Vancomycin Trough 11.2 ug/mL (10.0-20.0)
--- NOTE | 2021-04-16 23:43 | PC.NURSE ---
patients o2 sats have been hanging out in the upper 70's and low 80's. 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
[2021-04-17] VITALS (16 sets, daily range): BP systolic 115–140; BP diastolic 61–80; PULSE 94–128; RESP 20–48; TEMP 36.2–36.5; O2SAT 81–94
--- NOTE | 2021-04-17 00:12 | PC.NURSE ---
patient agreed to try the bipap after talking to his daughter eran. dr brooks is aware and bipap settings are in. will continue to monitor.
[2021-04-17] MEDS: LORazepam INJ (*CRX) 2 MG/ML VIAL 1 MG IV PUSH ×6 (00:19→17:29)
[2021-04-17] MEDS: LEVALBUTEROL NEB 1.25 MG/3 ML 0.63 MG INHALATION ×2 (02:05→07:57)
[2021-04-17 05:58] LABS: Basophils Percent Auto 0.1 % (0.2-1.2); Hematocrit 32.5 % (42.0-52.0); Immature Granulocyte Absolute 0.09 K/mm3 (0.00-0.031); Immature Granulocyte Percent A 0.8 % (0-0.5); Lymphocytes Absolute Auto 0.53 K/mm3 (0.9-3.2); Lymphocytes Percent Auto 4.8 % (18.3-44.2); Mean Corpuscular HGB Conc 33.8 g/dl (32-36); Mean Corpuscular Hemoglobin 31.6 pg (26-34); Mean Corpuscular Volume 93.4 fl (80-100); Mean Platelet Volume 9.7 fl (7.4-10.4); Monocytes Absolute Auto 0.4 K/mm3 (0.1-0.6); Neutrophils Percent Auto 90.3 % (45.5-73.1); Platelet Count Result 273 k/mm3 (150-375); Red Blood Count 3.48 M/mm3 (4.6-6.20); Red Cell Distribution Width 13.3 % (11.5-14.5)
[2021-04-17 06:08] LABS: Anion Gap 9 mmol/L (8-16); Blood Urea Nitrogen 22 mg/dL (9-20); Calcium 7.7 mg/dL (8.4-10.2); Carbon Dioxide 27 mmol/L (22-30); Chloride 95 mmol/L (98-107); Estimated CRCL calculation 52 ml/min; Estimated Glomerular Filt Rate 59; Glucose 310 mg/dL (65-110); Potassium 3.5 mmol/L (3.4-5.0); Sodium 131 mmol/L (137-145)
[2021-04-17] MEDS: PIPERACILLIN/TAZOBACTAM SOD 4.5 GM in SODIUM CHLORIDE 0.9% IV 100 ML 200 ML IVPB (06:32)
[2021-04-17] MEDS: methylPREDNISolone SOD SUCC 40 MG VIAL IV PUSH (06:32)
--- NOTE | 2021-04-17 07:58 | PM.IMPN ---
Progress Note: A&P Assessment and Plan (1) Acute respiratory failure with hypoxia: Code(s): J96.01 - Acute respiratory failure with hypoxia Status: Acute Assessment and Plan: Patient recently hospitalized for COVID pneumonia was discharged about a week prior to this admission. Patient developed increasing shortness of breath while at home and was noted to be hypoxic on presentation. CT of the chest shows extensive airspace disease probably bacterial pneumonia. Echo showing normal EF and moderate pulmonary hypertension and moderate MR. CHF exacerbation less likely. Increasing oxygen requirement overnight requiring BiPAP now. CXR reviewed personally and appears much worse. Consider organizing PNA or ARDS; consider also CHF component. Continue Steroids and abx. Continue supportive care. Appreciate Pulmonary input. Repeat lasix. BiPAP settings adjusted. Spoke with both dtrs and they were updated. Patient is clear that he does not want intubation. (2) Pneumonia: Qualifiers: Laterality: bilateral Lung location: unspecified part of lung Pneumonia type: due to unspecified organism Qualified Code(s): J18.9 - Pneumonia, unspecified organism Code(s): J18.9 - Pneumonia, unspecified organism Status: Acute Assessment and Plan: Possible bacterial pneumonia given chest x-ray findings and the hypoxia although no fever and minimal cough. WBC 13.5K and trending down. Blood cultures no growth to date. Continue IV antibiotics. (3) Atrial fibrillation with rapid ventricular response: Code(s): I48.91 - Unspecified atrial fibrillation Status: Acute Assessment and Plan: Patient was on metoprolol but this was stopped at the last hospitalization due to bradycardia. Echo as mentioned above. It appears that he was mildly tachycardic at the time of discharge. Here, his heart rate was 121 and he was given Diltiazem IV once in the ED. we added low-dose metoprolol. We continued his Xarelto. Heart rate reasonably well controlled. Continue to follow on telemetry. (4) Hyponatremia: Code(s): E87.1 - Hypo-osmolality and hyponatremia Status: Acute Assessment and Plan: Patient with mild hyponatremia during his last hospitalization. At time of discharge, sodium was 133. Sodium here is about the same. Will continue to monitor. (5) Elevated LFTs: Code(s): R79.89 - Other specified abnormal findings of blood chemistry Status: Acute Assessment and Plan: AST and ALT mildly elevated on admission. Levels were elevated at prior hospitalization but resolved. Hepatitis panel negative. Suspect related to the AFib with RVR causing hepatic congestion. Repeat LFTs improved. (6) Diabetes type 2, controlled: Qualifiers: Diabetes mellitus senior care insulin use: without senior care use Diabetes mellitus complication status: without complication Qualified Code(s): E11.9 - Type 2 diabetes mellitus without complications Code(s): E11.9 - Type 2 diabetes mellitus without complications Status: Acute Assessment and Plan: A1c was 6.1 last admission. Patient is on metformin which is on hold. Glucose poorly controlled related to steroids. Continue AccuCheks covering with sliding scale. Hypoglycemia protocol available as needed. Continue Lantus. (7) Benign essential hypertension: Code(s): I10 - Essential (primary) hypertension Status: Acute Assessment and Plan: Blood pressure remains well controlled. Will continue current medications. (8) DVT prophylaxis: Code(s): Z29.9 - Encounter for prophylactic measures, unspecified Status: Acute Assessment and Plan: Xarelto. Subjective Date/time seen: 04/17/21 07:58 Interval history: 71yo male with history of hypertension, hyperlipidemia, diabetes mellitus and recent hospitalization for COVID where he developed AFib who returns with i
[2021-04-17 08:38] LABS: Glucose Point of Care 313 mg/dl (65-105)
[2021-04-17] MEDS: METOPROLOL TARTRATE 12.5 MG TABLET PO (09:20)
[2021-04-17] MEDS: PANTOPRAZOLE SODIUM IV 40 MG VIAL IV PUSH (09:21)
[2021-04-17] MEDS: INSULIN ASPART (*BKC) 100 UNITS/ML SUB-Q (09:21)
[2021-04-17] MEDS: FUROSEMIDE INJ 40 MG/4 ML VIAL IV PUSH ×2 (09:21→11:06)
--- NOTE | 2021-04-17 10:01 | PM.PNPUL ---
Progress Note: A&P Assessment and Plan (1) Acute respiratory failure with hypoxia: Code(s): J96.01 - Acute respiratory failure with hypoxia Status: Acute Assessment and Plan: Patient is a never smoker with no occupational exposures and no respiratory limitations in his activity of daily living prior to developing COVID pneumonia on 03/28/2021. Patient was admitted to the hospital and required 4 L nasal cannula at peak illness and was treated with Remdesivir and dexamethasone for 10 days. Patient was discharged on 04/07/21 on room air. Patient returns 04/15/21 with worsening shortness of breath with exertion and with rest and hypoxemic respiratory failure with a chest x-ray demonstrating diffuse interstitial and alveolar infiltrates. Patient also has atrial fibrillation and is on Xarelto. My differential includes bacterial pneumonia, fluid overload, pulmonary embolism and post COVID interstitial lung disease -organizing pneumonia. 04/15 I agree with broad-spectrum antibiotics at this time including vancomycin, Zosyn and Levaquin. I will send a influenza swab, urine for Legionella, pneumococcus and histoplasmosis. I will send mycoplasma IgM. patient has an elevated BNP and at this time. He will get a CT angiogram of the chest and at this time I would repeat his creatinine in the morning and I would aggressively diurese patient as tolerated by his cardiac and renal symptoms systems. I will order repeat echocardiogram to exclude a COVID cardiomyopathy. CT angiogram of the chest to exclude pulmonary embolism. If the patient has evidence of organizing pneumonia, I would prefer to give him broad-spectrum antibiotics for 48-72 hours and assess for a clinical response prior to an empiric trial of steroids for possible organizing pneumonia. 10 L NC with sats 92%. Goal saturation 90-94%, escalate or wean FIO2 as tolerated. Later in the day patient had a CT angiogram of the chest which demonstrated no pulmonary emboli, diffuse patchy interstitial alveolar infiltrates worse on the left with areas of consolidation bilaterally. Lasix 40 IV was given x1. 04/16 Clinically the patient feels the same as he did yesterday. He does have some shortness of breath and dyspnea on exertion when he moves in the bed. His oxygenation is worse last night requiring 15 L nasal cannula with an overlying 15 L non-rebreather mask. This morning his saturations were 88% on those settings and we have switched him to airvo 60 L 100% FiO2 with saturations 93%. His white blood cell count is 10.4, creatinine is 1.0. blood cultures are negative. 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 I will also send serologies for connective tissue disease and or vasculitis including SHELIA screen, Anca screen, rheumatoid factor, anti CCP antibody and hypersensitivity pneumonitis panel. Continue vancomycin, Zosyn and Levaquin started 04/15 at 10:00 a.m. I discussed level of care with the patient and he confirms DNR and DNI status. BiPAP is acceptable. 04/17 patient continues to have worsening hypoxemic respiratory failure. Patient failed Airvo 60 L 100% FiO2 with a overlying 15 L non-rebreather mask and is now on BiPAP 100% and was on settings of 18/10 with saturations 85% when I entered the room. I changed him to noninvasive ventilation with an AVAPS mode rate of 20, tidal volume 550, EPAP 12, minimal inspiratory pressure 13, maximal inspiratory pressure 35, inspiratory time 1.2, rise 3, 100% FiO2 and he was breathing 44 times a minute with saturations 89%. Chest x-ray shows worsening diffuse interstitial and alveolar infiltrate now involving both lungs. His rheumatoid factor is positive. I will continue broad-spectrum antibiotics for the possibility of bacterial infection. He has been given Lasix for the possibility of fluid overload. I am tempting to and treat h
[2021-04-17] MEDS: MORPHINE SULFATE INJ (*CRX) 50 MG in SODIUM CHLORIDE 0.9% IV 95 ML IV CONT (11:50)
[2021-04-17] MEDS: MORPHINE SULFATE (*CRX) 4 MG/ML INJ IV PUSH ×3 (11:53→17:28)
[2021-04-17] MEDS: MORPHINE SULFATE (*CRX) 2 MG/ML INJ IV PUSH ×2 (12:31→13:09)
[2021-04-17 12:37] LABS: Glucose Point of Care 291 mg/dl (65-105)
[2021-04-17 14:17] LABS: Mycoplasma IgM Antibody Titer 199 U/mL (<770)
--- NOTE | 2021-04-18 00:47 | PC.NURSE ---
Follow up call placed to [facility] transplant. Patient release still on hold pending their screening process for donation per Marisol.
[2021-04-18 18:57] LABS: Pneumococcal Antigen Urine Not Detected (Not Detected)
[2021-04-18 19:12] LABS: ANA Cascade Screen Negative (Negative)
[2021-04-18 22:21] LABS: Legionella pneumophila Ag Ur Not Detected (Not Detected)
[2021-04-18 23:05] LABS: Anti Cyclic Citrullinated Pept <16 Units (<20)
--- NOTE | 2021-04-19 13:39 | P.DN_ITS ---
Discharge Summary Date and Time Date of : 04/17/21 Time of : 18:31 Provider Pronounced By: Tess Cordoba RN Probable Cause of Probable Cause of : Acute respiratory failure with pneumonia Summary Hospital Course: Patient recently hospitalized for COVID pneumonia and was discharged about a week prior to this admission. Patient developed increasing shortness of breath while at home and was noted to be hypoxic on presentation. CT of the chest shows extensive airspace disease probably bacterial pneumonia, organizing PNA and/or ARDS. Echo showing normal EF and moderate pulmonary hypertension and moderate MR. CHF exacerbation less likely. Increasing oxygen requirement and became BiPAP dependent. Pulmonary was consulted and appreciate their input. CXR worsened. Steroids added. Spoke with both dtrs and they were updated. Patient is clear that he does not want intubation. His condition worsened to the point he needed intubation. Multiple providers discussed options with the patient and he wanted to be kept comfortable. Family were supportive of the patient's decision. Patient's care was switch to comfort measures. Once he was comfortable, the BiPAP was removed. Patient on April 17, 2021. Additional Data Confirmation of as documented by pronouncing clinician: Pupillary Reflex, Palpable Pulses, Response to Stimuli, Heart Tones and Breath Sounds Name of Provider Notified: Dr. Hussein Time Provider Notified: 18:40 Provider Requests Autopsy: No Family Requests Autopsy: No Commissioned Fire Officer Notified: Yes Date [facility] Notified of : 04/17/21 Time [facility] Notified of : 18:51
[2021-04-21 21:10] LABS: ANCA Screen Negative (Negative)
== END 2021-04-17 18:31 | disposition expired | DRG 204 ==
LOC: ANHED 10:09 → ANHIMU 10:24
PROVIDERS: Internal Medicine Pulmonary Disease; Admitting Provider Internal Medicine; Emergency Provider Emergency Medicine; PCP Internal Medicine; Visit Provider Internal Medicine
DX: J80 Acute respiratory distress syndrome (principal); J15.9 Unspecified bacterial pneumonia; E87.1 Hypo-osmolality and hyponatremia; E78.5 Hyperlipidemia, unspecified; I48.91 Unspecified atrial fibrillation; I27.20 Pulmonary hypertension, unspecified; E11.9 Type 2 diabetes mellitus without complications; I10 Essential (primary) hypertension; E55.9 Vitamin D deficiency, unspecified; I34.0 Nonrheumatic mitral (valve) insufficiency; Z29.9 Encounter for prophylactic measures, unspecified; U09.9 Post COVID-19 condition, unspecified; Z79.84 Long term (current) use of oral hypoglycemic drugs; R79.89 Other specified abnormal findings of blood chemistry; Z66 Do not resuscitate; Z79.01 Long term (current) use of anticoagulants; Z51.5 Encounter for palliative care; Z82.49 Family history of ischemic heart disease and other diseases of the circulatory system; Z79.51 Long term (current) use of inhaled steroids; Z79.899 Other long term (current) drug therapy
CPT/HCPCS: 36415; 36600; 71045; 71275; 80048; 80053; 80074; 80202; 82570; 82607; 82746; 82805; 82948; 83615; 83735; 83880; 84100; 84300; 84484; 85025; 85380; 85610; 85730; 86036; 86038; 86140; 86200; 86331; 86430; 86606; 86609; 86738; 87040; 87070; 87081; 87205; 87385; 87449; 87804; 87899; 93005; 93306; 94002; 94003; 94640; 94660; 96374; 99285; A9270; C9113; J1815; J1940; J1956; J2060; J2270; J2543; J2920; J3370; J7030; Q9967